=== PATIENT | male | born 1960 | race Caucasian/White ===

== ENCOUNTER 2020-02-15 15:03 | Inpatient (IN) | payer OTHER, SELFPAY ==
[~2020-02-15] VITALS: Ht 170.2 cm; Wt 59.0 kg
[2020-02-15 15:03] VITALS: BP 125/95
--- NOTE | 2020-02-15 15:25 | NUR ---
BROUGHT IN BY EMS FROM HOME WITH SUDDEN ONSET OF SOB--- COVID-19 SWAB COLLECTED---PT STATES HE USUALLY USES 3-4 LITTERS AT HOME OF OXYGEN PER CANULA---AWAITING A LUNG TRANSPLANT
[2020-02-15] MEDS ORDERED: PRED20TA5 PO (15:37)
[2020-02-15] MEDS ORDERED: MULT-1301 PO (15:37)
[2020-02-15] MEDS ORDERED: METF500T PO (15:37)
[2020-02-15] MEDS ORDERED: BENZ-196 PO (15:37)
[2020-02-15] MEDS ORDERED: cefTRIAXone 1,000 MG VIAL ONE (16:00)
[2020-02-15 16:08] LABS: BASOPHILS # (AUTO) 0.1 K/uL (0.00-0.22); BASOPHILS % (AUTO) 0.8 % (0.0-2.0); EOSINOPHILS % (AUTO) 0.1 % (0.0-4.0); HEMATOCRIT 34.5 % (36-52); HEMOGLOBIN 11.9 g/dL (12.0-18.0); LYMPHOCYTES # (AUTO) 0.9 K/uL (2.0-11.5); MEAN CORPUSCULAR HEMOGLOBIN 30 pg (27-31); MEAN CORPUSCULAR HGB CONC 35 g/dL (33-37); MEAN CORPUSCULAR VOLUME 85.3 fL (80-94); MONOCYTES # (AUTO) 0.5 K/uL (0.8-1.0); MONOCYTES % (AUTO) 5.9 % (1.7-9.3); NEUTROPHILS # (AUTO) 7.4 K/uL (1.8-7.7); NEUTROPHILS % (AUTO) 83.2 % (42.2-75.2); PLATELET COUNT (AUTO) 420 K/uL (140-450); RED BLOOD CELL COUNT(AUTO) 4.04 MIL/uL (4.20-6.10); RED CELL DISTRIBUTION WIDTH 16.6 % (11.6-13.7); WHITE BLOOD COUNT (AUTO) 8.9 K/uL (4.8-10.8)
[2020-02-15 16:36] LABS: ALBUMIN 2.8 g/dL (3.4-5.0); ANION GAP 13.1 (8-16); CREATININE 0.8 mg/dL (0.6-1.3); POTASSIUM 3.1 mmol/L (3.5-5.1); TOTAL BILIRUBIN 0.4 mg/dL (0.0-1.0)
--- NOTE | 2020-02-15 17:14 | NUR ---
ENCOURAGED TO PROVIDE URINE SAMPLE---URINAL HANDED TO PT PT ON HIS CELL PHONE--REMAINS ON 15L NON REBREATHER AND NO APPARENT DISTRESS
[2020-02-15] MEDS ORDERED: AZITHROMYCIN 500 MG in DEXTROSE 5% 250 ML IV ONE (19:05)
--- NOTE | 2020-02-15 19:30 | NUR ---
REPORT RECEIEVD FROM MELANIE ROLDAN FOR CONTINUITY OF CARE.
[2020-02-15 19:50] LABS: APPEARANCE,URINE CLEAR (CLEAR); BILIRUBIN,URINE NEGATIVE (NEGATIVE); BLOOD, URINE NEGATIVE (NEGATIVE); COLOR,URINE YELLOW (YELLOW); LEUKOCYTE ESTERASE ,URINE NEGATIVE (NEGATIVE); NITRITE, URINE NEGATIVE (NEGATIVE); PH,URINE 5.5 (5.0-9.0); UGLUCOSE NEGATIVE (NEGATIVE)
--- NOTE | 2020-02-15 20:00 | NUR ---
PT TRANSFERRED VIA [employer] TO TELE-101 FOR ER OVERFLOW. REPORT GIVEN TO ANN ROLDAN.
--- NOTE | 2020-02-15 20:10 | NUR ---
RECEIVED REPORT FROM YULI DAI FOR CONTINUATION OF CARE.
--- NOTE | 2020-02-15 20:16 | NUR ---
PT RESTING IN BED, LOCKED AND IN LOWEST POSITION ,HOB ELEVATED, SIDE RAIL X2 FOR PT SAFETY, PT RR EVEN AND UNLABORED.
[2020-02-15] MEDS ORDERED: AZITHROMYCIN 500 MG INJ VIAL IV ONE (20:27)
--- NOTE | 2020-02-15 20:30 | NUR ---
PT PROVIDED INFORMATION FOR HIS COMBATANT DIVER QUALIFIED DR. ALAN CABRERA ,
[2020-02-15] MEDS: NACL 0.9% 1,000 ML IV SCH (20:59)
--- NOTE | 2020-02-15 21:00 | NUR ---
JASON W/ DR. MEZA RE: PT K+ LEVEL, PER DR. MEZA ADMINISTER 40 MEQ K+ PO .
[2020-02-15] MEDS ORDERED: POTASSIUM CHLORIDE 10 MEQ TABER PO ONE ×2 (21:20→21:32)
--- NOTE | 2020-02-15 21:20 | NUR ---
PT RESTING IN BED, LOCKED AND IN LOWEST POSITION, HOB ELEVATED , SIDE RAIL X 2 FOR PT SAFETY , VISIBLE RISE AND FALL OF CHEST , RR EVEN AND UNLABORED, PT WATCHING TV , NO DISTRESS NOTED AT THIS TIME.
--- NOTE | 2020-02-15 22:20 | NUR ---
PT RESTING IN BED, LOCKED AND IN LOWEST POSITION, HOB ELEVATED , SIDE RAIL X 2 FOR PT SAFETY , VISIBLE RISE AND FALL OF CHEST , RR EVEN AND UNLABORED, PT WATCHING TV , NO DISTRESS NOTED AT THIS TIME. PT PROVIDED A SANDWICH.
--- NOTE | 2020-02-15 22:27 | NUR ---
PT C/O OF PAIN IN RIGHT HAND FROM IV. PT HAS SECOND IV IN LEFT HAND INSERTED BY EMS PRIOR TO ER ARRIVAL , LEFT HAND IV 22G HAS BEEN FLUSHED W/ 10 CC NS , NO REDNESS, SWELLING, INFILTRATION OR PAIN NOTED ON LEFT HAND IV SITE. PT REQUEST RIGHT HAND 20G IV BE TAKEN OUT DUE TO PAIN AT IV SITE. RIGHT HAND IV HAS BEEN D/C , IV CATH INTACT.
--- NOTE | 2020-02-15 23:01 | NUR ---
PT ON CELL PHONE, BED IS LOCKED AND IN LOWEST POSITION ,HOB ELEVATED, SIDE RAIL X2 FOR PT SAFETY , RR EVEN AND UNLABORED, VISIBLE RISE AND FALL OF CHEST , VSS.
--- NOTE | 2020-02-15 23:29 | NUR ---
DR. MEZA AT BEDSIDE FOR EVALUATION.
--- NOTE | 2020-02-15 23:59 | NUR ---
PT C/O OF COUGH , DR. MEZA MADE AWARE , SHE WILL PUT IN AN ORDER FOR BREATHING TX.
[2020-02-16] MEDS ORDERED: MORPHINE SULFATE 2 MG/ML SYR IVP PRN
[2020-02-16] MEDS ORDERED: HYDROcodone/APAP 5/325 MG 1 TAB TAB PO PRN
[2020-02-16] MEDS ORDERED: ALBUTEROL HFA MDI 90 MCG/ACTUATION 8 GM INH PRN
[2020-02-16] MEDS ORDERED: metFORMIN 500 MG TAB PO PRN
--- NOTE | 2020-02-16 00:15 | NUR ---
[facility] SWAB COLLECTED .
--- NOTE | 2020-02-16 00:40 | NUR ---
SPOKE W/ [facility] NEED VERIFICATION OF BENZONATATE , STEROID AND METFORMIN MEDICATION ORDERS.
--- NOTE | 2020-02-16 01:05 | NUR ---
SPOKE W/ DR. MEZA REGUARDING MEDICATION VERIFICATION ORDERS , PER DR. MEZA PT BENZONATATE IS AN AT HOME MED TID KEEP ORDER IS, D/C DECADRON ORDER AND KEEP PT PREDNISONE ORDER AND CHANGE METFORMIN ORDER FROM PRN TO [facility].
--- NOTE | 2020-02-16 01:11 | NUR ---
SPOKE W/ ILIR AT [facility] TO UPDATE STATUS ON VERIFICATION OF MEDICATION ORDERS.
--- NOTE | 2020-02-16 01:19 | NUR ---
PER DR. MEZA , AZITHROMYCIN MEDICATION ORDER 250MG PO DAILY , 4 DOSES TOTAL.
--- NOTE | 2020-02-16 01:26 | NUR ---
PT SLEEPING , BED LOCKED AND IN LOWEST POSITION ,HOB ELEVATED , SIDE RAIL X2 FOR PT SAFETY , AROUSABLE BY VERBAL STIMULATION, VISIBLE RISE AND FALL OF CHEST, RR EVEN AND UNLABORED.
[2020-02-16 01:48] LABS: PROTHROMBIN TIME 9.8 secs (10.8-13.4)
[2020-02-16 01:56] LABS: THYROID STIMULATING HORMONE 0.54 uIU/mL (0.34-3.74)
--- NOTE | 2020-02-16 02:10 | NUR ---
PT SLEEPING , BED LOCKED AND IN LOWEST POSITION, HOB ELEVATED , SIDE RAILX2 FOR PT SAFETY , AROUSABLE BY VERBAL STIMULATION, VISIBLE RISE AND FALL OF CHEST, RR EVEN AND UNLABORED, VSS.
[2020-02-16] MEDS ORDERED: DEXTROSE 50% 50 ML SYR IVP PRN (02:35)
[2020-02-16 02:56] LABS: BARBITURATE, URINE NEGATIVE ng/ml (NEG <=200); BENZODIAZEPINE, URINE NEGATIVE ng/mL (NEG <=200); CANNABINOID, URINE NEGATIVE ng/mL (NEG <=50); COCAINE, URINE NEGATIVE ng/mL (NEG <=300); OPIATE, URINE POSITIVE ng/mL (NEG <=2000); PHENCYCLIDINE SCREEN,URINE NEGATIVE ng/mL (NEG <=25)
--- NOTE | 2020-02-16 03:19 | NUR ---
RT AT BEDSIDE.
--- NOTE | 2020-02-16 03:35 | NUR ---
PT C/O COUGH , LET RT KNOW PT NEEDS PRN BREATHING TX.
--- NOTE | 2020-02-16 03:42 | NUR ---
PT PROVIDED NEW URINAL FOR URINE SAMPLE.
--- NOTE | 2020-02-16 04:11 | NUR ---
RT AT BEDSIDE FOR BREATHING TX.
--- NOTE | 2020-02-16 05:09 | NUR ---
URINE SAMPLE COLLECTED AND HAND TO LAB.
--- NOTE | 2020-02-16 05:13 | NUR ---
PT RESTING IN BED , LOCKED AND IN LOWEST POSITION, HOB ELEVATED , SIDE RAIL X2 FOR PT SAFETY , RR EVEN AND UNLABORED , VISIBLE RISE AND FALL OF CHEST. PT STATES HE IS BREATHING BETTER AFTER BREATHING TX.
--- NOTE | 2020-02-16 05:33 | NUR ---
LAB AT BEDSIDE.
[2020-02-16 06:54] LABS: BASOPHILS % (AUTO) 0.4 % (0.0-2.0); EOSINOPHILS % (AUTO) 0.1 % (0.0-4.0); HEMATOCRIT 30.2 % (36-52); HEMOGLOBIN 10.3 g/dL (12.0-18.0); LYMPHOCYTES # (AUTO) 1.2 K/uL (2.0-11.5); LYMPHOCYTES % (AUTO) 13.2 % (20.5-51.1); MEAN CORPUSCULAR HEMOGLOBIN 30 pg (27-31); MEAN CORPUSCULAR HGB CONC 34 g/dL (33-37); MEAN CORPUSCULAR VOLUME 86.5 fL (80-94); MONOCYTES # (AUTO) 0.6 K/uL (0.8-1.0); MONOCYTES % (AUTO) 6.4 % (1.7-9.3); NEUTROPHILS # (AUTO) 7.1 K/uL (1.8-7.7); NEUTROPHILS % (AUTO) 79.9 % (42.2-75.2); PLATELET COUNT (AUTO) 366 K/uL (140-450); RED BLOOD CELL COUNT(AUTO) 3.49 MIL/uL (4.20-6.10); RED CELL DISTRIBUTION WIDTH 16.7 % (11.6-13.7); WHITE BLOOD COUNT (AUTO) 8.8 K/uL (4.8-10.8)
[2020-02-16 07:18] LABS: ALBUMIN 2.5 g/dL (3.4-5.0); ANION GAP 9.2 (8-16); CREATININE 0.8 mg/dL (0.6-1.3); MAGNESIUM 1.8 mg/dL (1.8-2.4); PHOSPHORUS 3.2 mg/dL (2.5-4.9); POTASSIUM 4.2 mmol/L (3.5-5.1); TOTAL BILIRUBIN 0.3 mg/dL (0.0-1.0)
[2020-02-16 07:40] VITALS: BP 134/98
--- NOTE | 2020-02-16 07:40 | NUR ---
PATIENT ADMITTED TO THE UNIT, REPORT GIVEN BY ER NURSE. PATIENT STARTED ON IVF NS AT 70 ML/HR. PATIENT CURRENTLY ON 10L VIA NONREBREATHER MASK, SATURATION IS AT 94%. PATIENT AOX4, HAS FREQUENT DRY NONPRODUCTIVE COUGH, LUNG SOUNDS DIMINISHED. PATIENT VS ARE FOLLOWS 98.4, HR 90, BP 155.93, R 20, 94% OXYGEN. SKIN IS INTACT, IV SITE ON LEFT HAND 22G PATENT. ALL NEEDS MET, CALL LIGHT WITHIN REACH, WILL CONTINUE TO MONITOR. DROPLET PRECAUTIONS FOLLOWED.
--- NOTE | 2020-02-16 07:40 | NUR ---
Patient will be admitted to care of DR. MEZA. Admited to TELEMETRY. Will go to room 115. Belongings list completed. Report to YULI OLIVAS .
[2020-02-16] MEDS: ASCORBIC ACID 500 MG TAB PO SCH (08:52)
[2020-02-16] MEDS: MULTIVITAMIN 1 TAB PO SCH (08:52)
[2020-02-16] MEDS: predniSONE 20 MG TAB PO SCH (08:52)
[2020-02-16] MEDS: metFORMIN 500 MG TAB PO SCH ×2 (08:52→17:03)
[2020-02-16] MEDS: BENZONATATE 100 MG CAPLF PO SCH ×3 (08:53→17:03)
[2020-02-16] MEDS: VITAMIN D 400 IU TAB PO SCH (08:53)
[2020-02-16] MEDS: AZITHROMYCIN 250 MG TAB PO SCH (08:54)
[2020-02-16] MEDS: ZINC SULF 220 MG CAP PO SCH ×2 (08:54→21:17)
--- NOTE | 2020-02-16 08:54 | NUR ---
MEDICATIONS EXPLAINED AND GIVEN TO PATIENT. PATIENT TOLERATED MEDICATIONS WELL, NO ADVERSE SIDE EFFECTS NOTED. HEPARIN 5,000 UNITS GIVEN, PLATELET LEVEL WAS 366. PATIENT SATURATION IS 93% ON 10L NONREBREATHER, STILL COUGHING CONSTANTLY. PATIENT STATES HIS SATURATIONS ARE USUALLY LOW DUE TO HIS CYSTIC FIBROSIS. PATIENT IVF STILL RUNNING AT 70 ML/HR. ALL NEEDS MET, CALL LIGHT WITHIN REACH, WILL CONTINUE TO MONITOR. DROPLET PRECAUTIONS FOLLOWED.
[2020-02-16] MEDS: BLOOD GLUCOSE MONITORING 1 DEV DEV FS SCH ×4 (09:33→21:21)
[2020-02-16] MEDS: NACL 0.9% 1,000 ML IV SCH ×2 (09:34→23:41)
--- NOTE | 2020-02-16 10:16 | NUR ---
PATIENT HAS BEEN SCREENED AND CATEGORIZED MODERATE NUTRITION RISK. PATIENT WILL BE SEEN WITHIN 3-5 DAYS OF ADMISSION. 02/17/20 02/19/[address]
--- NOTE | 2020-02-16 11:16 | NUR ---
PATIENT BLOOD SUGAR WAS 106, NO INSULIN COVERAGE NEEDED AT THIS TIME.
--- NOTE | 2020-02-16 11:37 | NUR ---
DECREASED FIO2 FROM 3LNC TO 1LNC O2 SAT 96%
[2020-02-16 12:00] VITALS: BP 142/103
--- NOTE | 2020-02-16 12:00 | NUR ---
PATIENT VITAL SIGNS CHECKED TO BE 97.5, HR 106, BP 142/103, RR 20, WITH O2 SATURATION AT 93%. PATIENT STILL HAS CONSTANT COUGH, DRY AND NON PRODUCTIVE. PATIENT DOES NOT COMPLAIN OF ANY PAIN AT THIS TIME. ALL NEEDS MET, CALL LIGHT WITHIN REACH, WILL CONTINUE TO MONITOR. DROPLET PRECAUTIONS FOLLOWED.
--- NOTE | 2020-02-16 15:18 | NUR ---
COMMUTATOR INSPECTOR NOTE: JONI CONTACTED CHIEF ENVIRONMENTAL COMMITMENT OFFICER MEHRAN TO BE TRANSFERRED TO PATIENT'S ROOM PHONE. PATIENT DID NOT ANSWER. SW CONTACTED PATIENT'S NURSE WHO ALSO DID NOT ANSWER. SW WILL FOLLOW UP.
[2020-02-16 16:00] VITALS: BP 142/98
--- NOTE | 2020-02-16 16:30 | NUR ---
ASSISTED PATIENT TO BEDSIDE COMMODE. PATIENT ABLE TO STAND INDEPENDENTLY AND WALK TO COMMODE. PATIENT HAD ONE BM, SOFT AND BROWN. EMPTIED PATIENT URINAL OF 200 ML CLEAR YELLOW NON ODOROUS URINE. PATIENT PERFORMED OWN PERICARE. ALL NEEDS MET, CALL LIGHT WITHIN REACH, WILL CONTINUE TO MONITOR. DROPLET PRECAUTIONS FOLLOWED.
--- NOTE | 2020-02-16 16:51 | NUR ---
PATIENT BLOOD SUGAR WAS 128 , NO INSULIN COVERAGE NEEDED AT THIS TIME.
--- NOTE | 2020-02-16 17:03 | NUR ---
MEDICATIONS EXPLAINED AND GIVEN TO PATIENT, CHANDAN CAMARILLO, NO ADVERSE REACTION NOTED. ALL NEEDS MET, CALL LIGHT WITHIN REACH, WILL CONTINUE TO MONITOR. DROPLET PRECAUTIONS FOLLOWED.
--- NOTE | 2020-02-16 17:07 | NUR ---
DC PLANN[age] YRS OLD MALE PATIENT WAS ADMITTED FROM HOME WITH A DX OF SOB PNEUMONIA. PT HAS A HX OF CYSTIC FIBROSIS, CURRENTLY REQUIRING 10ML NONREBREATHER. CXR SHOWED MODERATED DIFFUSE PATCHY AIRSPACE EDEMA VERSUS INFILTRATE. ADMINISTERED IVF IV ABX ROCEPHIN AND AZITHROMYCIN. COVID TEST BLOOD AND URINE CULTURE PENDING PULMO CONSULTED . DC PLAN TO GO HOME WHEN STABLE CM TO FOLLOW. Addendum: 02/17/20 at 1435 by Adrianne Champion CM DC PLANNING COVID TEST NEGATIVE , SEEN BY PULMO DR RAMIREZ RECOMMENDED TO CONTINUE WITH IV ABX AND TO WEAN THE OXYGEN. CURRENTLY PT IS ON 7L OXYMIZER. DC PLAN TO GO HOME WHEN STABLE . CM TO FOLLOW Addendum: 02/26/20 at 1534 by Adrianne Champion CM DC PLANNING: [facility] IS ACCEPTING PATIENT AWAITING FOR AUTH FROM PATIENT'S INSURANCE DASHAWN MCKEON. CM TO FOLLOW Addendum: 02/26/20 at 1609 by Adrianne Champion CM DC PLANNING: CALLED PT'S INSURANCE [employer] SPOKE WITH SHANE PATEL [phone] NOTIFIED HER THE [facility] WILL DISCUSS IT WITH ANIMAL NUTRITION TEACHER AND CALL BACK. ALEXANDRO DESAI NO BED AVAILABLE TODAY WILL FOLLOW UP TOMORROW. CM TO FOLLOW
--- NOTE | 2020-02-16 19:00 | NUR ---
REPORT GIVEN TO BLUNGER LOADER NURSE REGARDING PATIENT STATUS AND PLAN OF CARE. PT IS CURRENTLY RESTING IN BED, STILL COUGHING, BUT STABILIZED WITH OXYGEN SATURATION 96%. ALL NEEDS MET, CALL LIGHT WITHIN REACH, DROPLET PRECAUTIONS FOLLOWED.
--- NOTE | 2020-02-16 19:01 | NUR ---
RECEIVED BEDSIDE ENDORSEMENT FROM AM SHIFT RN, PATIENT IS AOX4, ON NON REBREATHER AT 10 LITERS, SATURATION OF 98%. NO SOB. DROPLET PRECAUTION IN PLACE. LOW BED IN PLACE. PLAN OF CARE WAS DISCUSSED. CALL LIGHT WITHIN REACH. WILL CONTINUE TO MONITOR.
[2020-02-16 20:00] VITALS: BP 137/95
--- NOTE | 2020-02-16 21:21 | NUR ---
DUE MEDS GIVEN ORDERED. TOLERATED WELL. MED EDUCATION PROVIDED. FALL RISK PROTOCOL IN PLACE.
[2020-02-17] VITALS: BP 129/91
--- NOTE | 2020-02-17 | NUR ---
V/S TAKEN AND RECORDED. KEPT CLEAN AND DRY.
[2020-02-17 04:00] VITALS: BP 133/87
--- NOTE | 2020-02-17 04:00 | NUR ---
RESPIRATION EVEN AND UNLABORED, NO SOB.
--- NOTE | 2020-02-17 05:13 | NUR ---
INFORMED DR. ANDERSON THAT PATIENT HAS COUGH AND THAT PATIENT IS REQUESTING FOR COUGH MED. ORDERED PROMETHAZINE/CODEINE 5ML PO Q4 PRN FOR COUGH, NOTED AND CARRIED OUT.
[2020-02-17] MEDS: PROMETH/CODEINE 6.25-10MG/5ML 5 ML UDC PO PRN ×3 (06:14→23:55)
[2020-02-17] MEDS: BLOOD GLUCOSE MONITORING 1 DEV DEV FS SCH ×4 (06:20→21:02)
--- NOTE | 2020-02-17 06:20 | NUR ---
PATIENT IS AWAKE, NO SOB, DENIES PAIN. PROMETHAZINE/CODEINED PO PRN COUGH GIVEN ORDERED. ORANGE JUICE GIVEN TO PATIENT FOR BLOOD SUGAR OF 77. PATIENT IS NOT IN ANY DISTRESS. DENIES PAIN.
--- NOTE | 2020-02-17 07:05 | NUR ---
RECEIVED PATIENT FROM NIGHT NURSE. PATIENT IS AWAKE AND ALERT. RESP EVEN AND UNLABORED ON 10L NONREBREATHER. DENIES OF ANY DISCOMFORT AT THIS TIME. PLAN OF CARE DISCUSSED WITH PATIENT. PATIENT VERBALIZED UNDERSTANDING. CALL LIGHT WITHIN REACH. LH22 WITH NS 70ML/HR NOTED. DROPLET PRECAUTION OBSERVED. WILL CONTINUE WITH CARE.
--- NOTE | 2020-02-17 07:05 | NUR ---
PATIENT IS IN STABLE CONDITION. ENDORSED TO YULI CHAMPAGNE FOR CONTINUITY OF CARE.
[2020-02-17 07:08] LABS: T4 (THYROXINE) 6.5 ug/dL (4.5-12.0)
[2020-02-17 07:31] LABS: BASOPHILS % (AUTO) 0.5 % (0.0-2.0); EOSINOPHILS % (AUTO) 0.1 % (0.0-4.0); HEMATOCRIT 30.6 % (36-52); HEMOGLOBIN 10.5 g/dL (12.0-18.0); LYMPHOCYTES # (AUTO) 1.1 K/uL (2.0-11.5); LYMPHOCYTES % (AUTO) 11.7 % (20.5-51.1); MEAN CORPUSCULAR HEMOGLOBIN 29 pg (27-31); MEAN CORPUSCULAR HGB CONC 34 g/dL (33-37); MEAN CORPUSCULAR VOLUME 85.4 fL (80-94); MONOCYTES # (AUTO) 0.4 K/uL (0.8-1.0); MONOCYTES % (AUTO) 4.1 % (1.7-9.3); NEUTROPHILS # (AUTO) 7.6 K/uL (1.8-7.7); NEUTROPHILS % (AUTO) 83.6 % (42.2-75.2); PLATELET COUNT (AUTO) 364 K/uL (140-450); RED BLOOD CELL COUNT(AUTO) 3.58 MIL/uL (4.20-6.10); RED CELL DISTRIBUTION WIDTH 16.3 % (11.6-13.7); WHITE BLOOD COUNT (AUTO) 9.1 K/uL (4.8-10.8)
[2020-02-17 08:00] VITALS: BP 141/97
[2020-02-17] MEDS: MULTIVITAMIN 1 TAB PO SCH (08:36)
[2020-02-17] MEDS: ASCORBIC ACID 500 MG TAB PO SCH (08:36)
[2020-02-17] MEDS: predniSONE 20 MG TAB PO SCH (08:36)
[2020-02-17] MEDS: BENZONATATE 100 MG CAPLF PO SCH ×3 (08:36→16:53)
[2020-02-17] MEDS: AZITHROMYCIN 250 MG TAB PO SCH (08:36)
[2020-02-17] MEDS: metFORMIN 500 MG TAB PO SCH ×2 (08:36→16:53)
[2020-02-17] MEDS: ZINC SULF 220 MG CAP PO SCH (08:36)
[2020-02-17] MEDS: VITAMIN D 400 IU TAB PO SCH (08:37)
[2020-02-17 08:46] LABS: ALBUMIN 2.6 g/dL (3.4-5.0); ANION GAP 9.8 (8-16); CARBON DIOXIDE 32.9 mmol/L (21-32); CREATININE 0.7 mg/dL (0.6-1.3); MAGNESIUM 1.5 mg/dL (1.8-2.4); POTASSIUM 3.7 mmol/L (3.5-5.1); TOTAL BILIRUBIN 0.4 mg/dL (0.0-1.0)
--- NOTE | 2020-02-17 08:55 | NUR ---
MORNING ROUTINE MEDICATIONS GIVEN. PATIENT TOLERATED WELL. RESP EVEN AND UNLABORED ON 10L NONREBREATHER. PATIENT DENIES OF PAIN AT THIS TIME. LH22 PATENT WITH NS 70ML/HR. PATIENT IS SITTING UP IN BED EATING BREAKFAST. CALL LIGHT WITHIN REACH. WILL CONTINUE TO MONITOR.
--- NOTE | 2020-02-17 10:25 | NUR ---
ATTEMPTS MADE TO WEAN PATIENT OFF NONREBREATHER BY RT. PATIENT IS NOT TOLERATING WELL ON 2L NC. PATIENT IS NOW 96% ON 7L OXIMIZER AND TOLERATING WELL. PATIENT GIVEN PHENERGAN/CODEINE FOR COUGHS. TOLERATED WELL. WILL CONTINUE TO MONITOR.
--- NOTE | 2020-02-17 10:50 | NUR ---
checked on pt's o2 sat was on 12l nrb and was sating 95% changed to 2lnc and o2 sat was 90%then pt desat again and changed to 4l oxymizer at 4l and o2 sat 90% pt then again desat to 79% and jonathan carreon increased fio2 to 7l oxymizer and pt sat to 95% informed dr. georges of patients condition and she said to leave pt on 7l oxymizer.
[2020-02-17 12:00] VITALS: BP 121/87
[2020-02-17] MEDS: NACL 0.9% 1,000 ML IV SCH (13:59)
[2020-02-17] MEDS ORDERED: MAG SULF 2000 MG/WATER PREMIX 50 ML IV SCH (14:00)
--- NOTE | 2020-02-17 14:41 | NUR ---
MAG RIDER GIVEN ORDERED. RESP EVEN AND UNLABORED ON 7L OXIMIZER. PATIENT IS RESTING COMFORTABLY IN BED. WILL CONTINUE TO MONITOR.
[2020-02-17 16:00] VITALS: BP 135/92
[2020-02-17] MEDS: PIPERACILLIN/TAZOBACTAM 3.375 GM in DEXTROSE 5% 50 ML IV SCH ×2 (17:35→23:55)
--- NOTE | 2020-02-17 19:20 | NUR ---
ENDORSED TO NIGHT NURSE. PATIENT IN STABLE CONDITION
[2020-02-17 20:00] VITALS: BP 152/93
--- NOTE | 2020-02-17 20:00 | NUR ---
RECEIVED REPORT FROM DAY RN REGARDING THE PT FOR CONTINUITY OF CARE. RECEIVED PT LYING IN BED WATCHING TV. PT A/A/OX4, AMBULATES TO THE BEDSIDE COMMODE WITH ASSIST. NOT IN ANY DISTRESS. NO COMPLAIN OF PAIN AT THIS TIME. IVF INFUSING ORDERED. FALL PRECAUTION IMPLEMENTED. INSTRUCTED TO CALL FOR ASSISTANCE AT ALL TIMES. PT VERBALIZED UNDERSTANDING.CALL LIGHT WITHIN REACH. WILL CONTINUE POC.
--- NOTE | 2020-02-17 22:00 | NUR ---
ADMINISTERED ALL SCHEDULED MEDICATIONS ORDERED. BLOOD SUGAR WAS 92. NO COVERAGE GIVEN AND NEEDED. PT WAS COMPLAINING AT THE BEGINNING OF THE SHIFT THAT THEY DIDN'T GIVE HIM DINNER. GAVE PT TURKEY SANDWICH AND APPLE JUICE AND JELLO. CALL LIGHT WITHIN REACH. SAFETY MEASURES IN PLACED.
[2020-02-18] VITALS: BP 128/83
--- NOTE | 2020-02-18 | NUR ---
PT STILL AWAKE AND ON THE PHONE. VITAL SIGNS STABLE, AFEBRILE, SATING 97% ON 7L OXIMIZER. NO COMPLAIN AT THIS TIME.SR ON INSTRUCTIONAL TECHNOLOGY DIRECTOR, HR-98. CALL LIGHT WITHIN REACH.
--- NOTE | 2020-02-18 02:00 | NUR ---
PT ASLEEP AT THIS TIME. NO SIGN AND SYMPTOMS OF DISTRESS NOTED. VISIBLE CHEST RISE AND FALL NOTED. SAFETY MEASURES IN PLACED.
[2020-02-18] MEDS: NACL 0.9% 1,000 ML IV SCH ×2 (02:22→18:35)
[2020-02-18 04:00] VITALS: BP 130/82
--- NOTE | 2020-02-18 04:00 | NUR ---
PT AWAKE AND ON THE PHONE. VITAL SIGNS STABLE, AFEBRILE, SATING 97% ON 7L OXYMIZER. NO COMPLAIN AT THIS TIME.
[2020-02-18] MEDS: PIPERACILLIN/TAZOBACTAM 3.375 GM in DEXTROSE 5% 50 ML IV SCH ×4 (05:38→23:44)
[2020-02-18] MEDS: BLOOD GLUCOSE MONITORING 1 DEV DEV FS SCH ×4 (05:39→20:28)
--- NOTE | 2020-02-18 06:24 | NUR ---
PATIENT STABLE. NO ACUTE EVENTS THROUGHOUT THE NIGHT. NOT IN ANY DISTRESS. NO COMPLAIN AT THIS TIME. BLOOD SUGAR 78. NO COVERAGE NEEDED AND GIVEN. ALL NEEDS ATTENDED. WILL ENDORSE THE PT TO THE ONCOMING RN FOR CONTINUITY OF CARE.
[2020-02-18] MEDS: ALBUTEROL SULFATE/IPRATROPIU 3 ML SOL IH SCH ×3 (07:00→19:00)
--- NOTE | 2020-02-18 07:21 | NUR ---
RECEIVED REPORT FROM CONTINUING EDUCATION DIRECTOR RN FOR CONTINUITY OF CARE. PT IS AAOX4, COOPERATIVE AND ABLE TO MAKE NEEDS KNOWN. PT ON 7L O2 SATING 95%. PT SKIN IS INTACT. SOME SMALL BRUISING NOTED ON ABD AREA FROM HEPARIN INJECTIONS. PT AMBULATORY, ABLE TO PERFORM ADLS INDEPENDENTLY. PT HAS LEFT HAND 22G INFUSING NS @ 70ML/HR. INFUSING WELL. DISCUSSED POC WITH PT AND PT VERBALIZED UNDERSTANDING. ALL SAFETY MEASURES IN PLACE. BEDSIDE COMMODE AT PT BEDSIDE FOR EASE OF TOILETING. BED IN LOW POSITION, CALL LIGHT WITHIN REACH. WILL ROUND FREQUENTLY ON PT THROUGHOUT THE SHIFT.
[2020-02-18 07:34] LABS: ANION GAP 8.5 (8-16); CARBON DIOXIDE 33.7 mmol/L (21-32); CREATININE 0.6 mg/dL (0.6-1.3); POTASSIUM 3.2 mmol/L (3.5-5.1)
[2020-02-18 07:39] LABS: MAGNESIUM 1.7 mg/dL (1.8-2.4); PHOSPHORUS 3.8 mg/dL (2.5-4.9)
[2020-02-18 08:00] VITALS: BP 157/53
[2020-02-18] MEDS ORDERED: metFORMIN 500 MG TAB PO SCH (08:00)
[2020-02-18 08:05] LABS: HEMATOCRIT 31.8 % (36-52); HEMOGLOBIN 10.7 g/dL (12.0-18.0); MEAN CORPUSCULAR HEMOGLOBIN 29 pg (27-31); MEAN CORPUSCULAR HGB CONC 34 g/dL (33-37); MEAN CORPUSCULAR VOLUME 85.7 fL (80-94); PLATELET COUNT (AUTO) 389 K/uL (140-450); RED BLOOD CELL COUNT(AUTO) 3.71 MIL/uL (4.20-6.10); RED CELL DISTRIBUTION WIDTH 16.9 % (11.6-13.7); WHITE BLOOD COUNT (AUTO) 10.1 K/uL (4.8-10.8)
[2020-02-18] MEDS: metFORMIN 850 MG TAB PO SCH ×2 (08:50→17:10)
[2020-02-18] MEDS: BENZONATATE 100 MG CAPLF PO SCH ×3 (08:50→17:00)
[2020-02-18] MEDS: predniSONE 20 MG TAB PO SCH (08:50)
[2020-02-18] MEDS: MULTIVITAMIN 1 TAB PO SCH (08:50)
[2020-02-18] MEDS: AZITHROMYCIN 250 MG TAB PO SCH (08:50)
--- NOTE | 2020-02-18 09:12 | NUR ---
ADMINISTERED MORNING MEDS TO PT. PT TOLERATED WELL. ALL NEEDS MET. WILL CONTINUE TO ROUND FREQUENTLY ON PT. BED IN LOW POSITION, CALL LIGHT WITHIN REACH.
--- NOTE | 2020-02-18 09:21 | NUR ---
COULD NOT ADMIN 7AM TX DUE TO C SECTION.
[2020-02-18] MEDS: PROMETH/CODEINE 6.25-10MG/5ML 5 ML UDC PO PRN ×2 (09:58→22:30)
--- NOTE | 2020-02-18 11:24 | NUR ---
PT RESTING IN BED. ALL NEEDS MET.
[2020-02-18 12:00] VITALS: BP 114/76
--- NOTE | 2020-02-18 13:22 | NUR ---
PT RESTING IN BED. ALL NEEDS MET. WILL CONTINUE TO ROUND FREQUENTLY ON PT.
[2020-02-18] MEDS ORDERED: MAG SULF 2000 MG/WATER PREMIX 50 ML IV SCH (13:30)
--- NOTE | 2020-02-18 13:57 | NUR ---
ADMINISTERED PROMETHAZINE BUT NOT SCANNED. PT TOLERATED WELL.
[2020-02-18 14:29] LABS: BASOPHILS % (MANUAL) 0 % (0-2); EOSINOPHILS % (MANUAL) 0 % (0-4); LYMPHOCYTES % (MANUAL) 14 % (20-46); METAMYELOCYTES % 3 % (0-0); MONOCYTES % (MANUAL) 5 % (5-12); MYELOCYTES % 3 % (0-0)
--- NOTE | 2020-02-18 15:59 | NUR ---
PT RESTING IN BED AND WATCHING VIDEOS ON HIS CELL PHONE. ALL NEEDS CURRENTLY MET. WILL CONTINUE TO ROUND FREQUENTLY ON PT.
[2020-02-18 16:00] VITALS: BP 126/89
[2020-02-18] MEDS ORDERED: POTASSIUM CHLORIDE 40 MEQ, LIDOCAINE MPF 1% 25 MG in NACL 0.9% 250 ML IV SCH (16:00)
[2020-02-18] MEDS ORDERED: MAG SULF 2000 MG/WATER PREMIX 50 ML IV PRN ×2 (17:10→17:15)
[2020-02-18] MEDS ORDERED: POTASSIUM CHLORIDE 10 MEQ TABER PO PRN (17:10)
[2020-02-18] MEDS: INSULIN LISPRO SLIDING SCALE 100 UNITS/ML VIAL SUBQ PRN (17:16)
--- NOTE | 2020-02-18 17:48 | NUR ---
PT SITTING IN BED EATING DINNER. ALL NEEDS MET.
--- NOTE | 2020-02-18 18:52 | NUR ---
WILL ENDORSE TO GROUNDWATER CONSULTANT FOR CONTINUITY OF CARE. PT IN STABLE CONDITION.
[2020-02-18 20:00] VITALS: BP 128/90
--- NOTE | 2020-02-18 20:00 | NUR ---
RECEIVED REPORT FROM DAYSHIFT NURSE AT BEDSIDE. PT AWAKE AND ALERT, SITTING UP ON THE PHONE. ARMENIAN SPEAKING, ABLE TO FOLLOW COMMANDS, AND MAKE NEEDS KNOWN. OXYMIZER 7L, SATURATIONS 96%, LUNG SOUNDS CLEAR, BREATHING IS EVEN AND UNLABORED. SMALL INTERMITTENT COUGH NOTED. S1S2, SR ON TELE MONITOR. SKIN WARM AND DRY, AFEBRILE, INTACT. ABDOMEN SOFT AND NONTENDER, BOWEL SOUNDS ACTIVE. BEDSIDE COMMODE IN PLACE AND PT CONTINENT, USES URINAL. LEFT HAND 22G, FLUSHED AND PATENT. INFUSING KCL @ 68ML/HR. IVF NS @ 70ML/HR. ORIENTED PATIENT TO TREATMENT AND CALL LIGHT. ALL VALUABLES WITHIN REACH, SAFETY MEASURES IN PLACE, BED LOCKED AND IN LOWEST POSITION, PT DENIES PAIN. WILL CONTINUE TO MONITOR.
--- NOTE | 2020-02-18 21:30 | NUR ---
PT BLOOD SUGAR 106, NO COVERAGE NEEDED. SCHEDULED HEPARIN GIVEN, WITNESSED WITH SECOND RN. ALL NEEDS MET AT THIS TIME.
--- NOTE | 2020-02-18 22:30 | NUR ---
PT ASKING FOR COUGH MEDICINE. REPORTS HAVING A SMALL COUGH. O2 SATS DROP BELOW 90% WHEN COUGHING BUT RETURNS TO 96%. OXYMIZER 7L. PRN COUGH MED GIVEN, WILL REASSESS.
--- NOTE | 2020-02-18 22:42 | NUR ---
PT SLEEPING COMFORTABLY ON 9L OXY NO DISTRESS NOTED AT THIS TIME SPO2 95%
[2020-02-19] VITALS: BP 128/85
--- NOTE | 2020-02-19 00:10 | NUR ---
CHECKED IN ON PATIENT, ALERT TO VOICE. WOKE PATIENT UP TO CHECK VITALS AND EXPLAIN IV ANTIBIOTICS. VERBALIZED UNDERSTANDING. DENIES SOB OR PAIN. DECREASED O2 TO 5L, ASSESSED SATURATIONS, 96% ON 5L OXYMIZER. CALLED RT TO MAKE AWARE. PT TOLERATING WELL. EMPTIED URINAL, 100ML CLEAR YELLOW URINE. ALL OTHER VITALS WITHIN RANGE.
--- NOTE | 2020-02-19 01:32 | NUR ---
CHECKED IN ON PATIENT. SLEEPING, SNORING, NO SIGNS OF DISTRESS. CONTINUOUS PULSE OX AND CARDIAC MONITORING, 97% ON 5L OXYMIZER. SAFETY MEASURES IN PLACE, CALL LIGHT WITHIN REACH.
--- NOTE | 2020-02-19 01:55 | NUR ---
CHECKED IN ON PATIENT. PT IN DEEP SLEEP, AND DID NOT HAVE OXYMIZER ON, DESATTED TO 70's. WOKE PT UP AND REAPPLIED OXYMIZER, INCREASED 02 UNTIL SATURATIONS IMPROVED. PT HAVING SLIGHT COUGHING EPISODE. RN AT BEDSIDE TIL PT STABLE. REORIENTED PT TO OXYMIZER, VERBALIZED UNDERSTANDING. 02 94%. WILL CONTINUE TO MONITOR.
--- NOTE | 2020-02-19 03:45 | NUR ---
CHANGED IV BAG, IVF NS @ 70ML/HR. PT NOT IN DISTRESS. ABLE TO SELF TURN. VITALS WITHIN RANGE. BED LOCKED AND IN LOWEST POSITION. BEDSIDE COMMODE IN PLACE, URINAL AT BEDSIDE. ALL VALUABLES WITHIN REACH.
[2020-02-19 04:00] VITALS: BP 119/81
--- NOTE | 2020-02-19 05:15 | NUR ---
PT RESTING WELL, VISIBLE CHEST RISE AND FALL. NO DISTRESS NOTED. SAFETY MEASURES IN PLACE, SATURATIONS 97%, GOOD WAVE FORM NOTED ON MONITOR.
[2020-02-19] MEDS: PIPERACILLIN/TAZOBACTAM 3.375 GM in DEXTROSE 5% 50 ML IV SCH ×3 (05:52→17:17)
--- NOTE | 2020-02-19 06:40 | NUR ---
BLOOD SUGAR CHECK-90, NO COVERAGE NEEDED. INFORMED PATIENT BREAKFAST WILL COME AROUND [phone]. PT UPDATED ON TREATMENT, VERBALIZED UNDERSTANDING. DENIES PAIN. LEFT HAND 22G STILL INTACT, INFUSING IVF @ 70ML/HR. OXYMIZER AT 5L. WILL ENDORSE TO DAYSHIFT.
[2020-02-19] MEDS: BLOOD GLUCOSE MONITORING 1 DEV DEV FS SCH ×4 (06:50→21:42)
--- NOTE | 2020-02-19 07:25 | NUR ---
RECEIVED PT FROM NIGHT NURSE. PT IN STABLE CONDITION, AAOX4, NO DISTRESS NOTED, DENIES PAIN, RESPIRATIONS EVEN AND UNLABORED ON OXIMIZER AT 7L, O2 SAT 90%, PT DENIES SOB. IV SITE IN PLACE PATENT AND ASYMPTOMATIC INFUSING PER ORDER IN L H 22G. PT IS ABLE TO USE URINAL AND BEDSIDE COMMODE. STANDARD ISOLATION, COVID (-) ON 02/14. LAST BLOOD SUGAR 90. SAFETY MEASURES IN PLACE, BED IN LOW POSITION, CALL LIGHT WITHIN REACH. WILL CONTINUE TO MONITOR.
[2020-02-19 07:38] LABS: BASOPHILS # (AUTO) 0.1 K/uL (0.00-0.22); BASOPHILS % (AUTO) 0.5 % (0.0-2.0); EOSINOPHILS % (AUTO) 0.1 % (0.0-4.0); HEMATOCRIT 28.6 % (36-52); HEMOGLOBIN 9.9 g/dL (12.0-18.0); LYMPHOCYTES # (AUTO) 1.2 K/uL (2.0-11.5); LYMPHOCYTES % (AUTO) 11.1 % (20.5-51.1); MEAN CORPUSCULAR HEMOGLOBIN 30 pg (27-31); MEAN CORPUSCULAR HGB CONC 35 g/dL (33-37); MEAN CORPUSCULAR VOLUME 85.1 fL (80-94); MONOCYTES # (AUTO) 0.5 K/uL (0.8-1.0); MONOCYTES % (AUTO) 4.7 % (1.7-9.3); NEUTROPHILS # (AUTO) 8.7 K/uL (1.8-7.7); NEUTROPHILS % (AUTO) 83.6 % (42.2-75.2); PLATELET COUNT (AUTO) 339 K/uL (140-450); RED BLOOD CELL COUNT(AUTO) 3.36 MIL/uL (4.20-6.10); WHITE BLOOD COUNT (AUTO) 10.4 K/uL (4.8-10.8)
[2020-02-19] MEDS: ALBUTEROL SULFATE/IPRATROPIU 3 ML SOL IH SCH ×3 (07:40→19:49)
[2020-02-19 07:49] LABS: ANION GAP 6.5 (8-16); CARBON DIOXIDE 32.8 mmol/L (21-32); CREATININE 0.7 mg/dL (0.6-1.3); POTASSIUM 3.3 mmol/L (3.5-5.1)
[2020-02-19 07:55] LABS: MAGNESIUM 1.8 mg/dL (1.8-2.4); PHOSPHORUS 2.8 mg/dL (2.5-4.9)
[2020-02-19 08:00] VITALS: BP 129/89
[2020-02-19] MEDS: PROMETH/CODEINE 6.25-10MG/5ML 5 ML UDC PO PRN ×3 (08:38→22:33)
--- NOTE | 2020-02-19 08:49 | NUR ---
MEDICATIONS ADMINISTERED PER ORDER. PT TOLERATED WELL, NO DISTRESS NOTED. SAFETY MEASURES IN PLACE. WILL CONTINUE TO MONITOR.
[2020-02-19] MEDS: metFORMIN 850 MG TAB PO SCH ×2 (08:50→17:17)
[2020-02-19] MEDS: predniSONE 20 MG TAB PO SCH (08:50)
[2020-02-19] MEDS: BENZONATATE 100 MG CAPLF PO SCH ×3 (08:50→16:56)
[2020-02-19] MEDS: NACL 0.9% 1,000 ML IV SCH ×2 (08:51→22:13)
[2020-02-19] MEDS: AZITHROMYCIN 250 MG TAB PO SCH (08:51)
[2020-02-19] MEDS: MULTIVITAMIN 1 TAB PO SCH (08:51)
--- NOTE | 2020-02-19 10:05 | NUR ---
PT ASSISTED IN USING BEDSIDE COMMODE, SATURATION DROPPED TO 75%. INCREASED O2 TO 10L VIA OXYMIZER. RT KAREL HAGEN. WILL CONTINUE TO MONITOR.
[2020-02-19 12:00] VITALS: BP 126/91
--- NOTE | 2020-02-19 12:45 | NUR ---
PT IN BED EATING, NO RESPIRATORY DISTRESS NOTED. DENIES PAIN. BENZONATATE MEDICATION REFUSED. SAFETY MEASURES IN PLACE. WILL CONTINUE TO MONITOR.
--- NOTE | 2020-02-19 15:16 | NUR ---
02/19/20 RD INITIAL ASSESSMENT COMPLETED PLEASE REFER TO NUTRITION ASSESSMENT UNDER CARE ACTIVITY FOR ESTIMATED NUTRITIONAL NEEDS. 1. RECOMMEND CCHO 75GM DIET TOLERATED 2. RECOMMEND GLUCERNA QID 3. ENCOURAGED PO INTAKE 4. RD TO FOLLOW-UP 3-5 DAYS, MODERATE RISK JANELLE CANO, RD
--- NOTE | 2020-02-19 15:21 | NUR ---
PT IN BED SLEEPING, NO DISTRESS NOTED. RESPIRATIONS EVEN AND UNLABORED. WILL CONTINUE TO MONITOR.
[2020-02-19 16:00] VITALS: BP 147/103
--- NOTE | 2020-02-19 17:12 | NUR ---
MEDICATIONS ADMINISTERED PER ORDER, PT TOLERATED WELL. BLOOD SUGAR IS 124, NO INSULIN NEEDED. NO DISTRESS NOTED, RESPIRATIONS EVEN AND UNLABORED ON 7L VIA OXYMIZER. WILL CONTINUE TO MONITOR.
--- NOTE | 2020-02-19 19:26 | NUR ---
REPORT GIVEN TO NIGHT NURSE FOR CONTINUITY OF CARE.
--- NOTE | 2020-02-19 19:30 | NUR ---
RECEIVED PT FROM DAY RN. PT IN STABLE CONDITION, AOX4, NO S/S RESPIRATORY DISTRESS. NO C/O PAIN AT THIS TIME. ON OXIMIZER AT 6L, O2 SAT 90%. IV SITE ASYMPTOMATIC, INTACT, PATENT, RUNNING IVF PER MD ORDER IN LEFT HAND 22G. PT USES URINAL AND BEDSIDE COMMODE. BED IN LOW POSITION, SIDE RAILS UP X2, CALL LIGHT WITHIN REACH. WILL CONTINUE TO MONITOR.
--- NOTE | 2020-02-19 19:54 | NUR ---
RECEIVED REPORT FROM AM SHIFT. PT SEEN AND ASSESSED. PT IS ON 6L OXYMIZER WITH SPO2 OF 98%. AUSCULTATION REVEALS CLEAR BREATH SOUNDS. PT IN NO APPARENT RESPIRATORY DISTRESS AT THIS TIME. TX GIVEN ORDERED AND PT TOLERATED WELL WITH NO ADVERSE REACTIONS. WILL CONTINUE TO MONITOR PT.
[2020-02-19 20:00] VITALS: BP 131/90
--- NOTE | 2020-02-19 21:40 | NUR ---
ADMINISTERED SCHEDULED MEDICATION. MEDICATION EDUCATION GIVEN. PT VERBALIZED UNDERSTANDING. WILL CONTINUE TO MONITOR.
--- NOTE | 2020-02-19 21:45 | NUR ---
BLOOD SUGAR 128. NO INSULIN COVERAGE NEEDED.
--- NOTE | 2020-02-19 23:50 | NUR ---
PTRSTING IN BED. NO DISTRESS NOTED. RESPIRATIONS EVEN AND UNLABORED. O2 SAT 88%. WILL CONTINUE TO MONITOR.
[2020-02-20] VITALS: BP 123/87
[2020-02-20] MEDS: PIPERACILLIN/TAZOBACTAM 3.375 GM in DEXTROSE 5% 50 ML IV SCH ×5 (00:32→23:19)
--- NOTE | 2020-02-20 02:00 | NUR ---
PT RESTING IN BED. O2 SAT 91%. WILL CONTINUE TO MONITOR
[2020-02-20] MEDS: POTASSIUM CHLORIDE 10 MEQ TABER PO PRN (02:50)
[2020-02-20 04:00] VITALS: BP 141/90
[2020-02-20] MEDS: ALBUTEROL SULFATE/IPRATROPIU 3 ML SOL IH PRN ×2 (04:02→14:03)
--- NOTE | 2020-02-20 04:15 | NUR ---
PT RESTING IN BED. O2 SAT 94%. DENIES SOB. DENIES PAIN. NO DISTRESS NOTED. WILL CONTINUE TO MONITOR
[2020-02-20] MEDS: ALBUTEROL SULFATE/IPRATROPIU 3 ML SOL IH SCH ×3 (07:00→13:00)
--- NOTE | 2020-02-20 07:19 | NUR ---
RECEIVED REPORT FROM ENVIRONMENTAL REMEDIATION ENGINEER RN FOR CONTINUITY OF CARE. PT IS AAOX4, COOPERATIVE AND ABLE TO MAKE NEEDS KNOWN. PT ON 7L O2 SATING 91%. PT SKIN IS INTACT. SOME SMALL BRUISING NOTED ON ABD AREA FROM HEPARIN INJECTIONS. PT AMBULATORY, ABLE TO PERFORM ADLS INDEPENDENTLY. PT HAS LEFT HAND 22G INFUSING NS @ 70ML/HR. INFUSING WELL. DISCUSSED POC WITH PT AND PT VERBALIZED UNDERSTANDING. ALL SAFETY MEASURES IN PLACE. BEDSIDE COMMODE AT PT BEDSIDE FOR EASE OF TOILETING. BED IN LOW POSITION, CALL LIGHT WITHIN REACH. WILL ROUND FREQUENTLY ON PT THROUGHOUT THE SHIFT.
--- NOTE | 2020-02-20 07:20 | NUR ---
ENDORSED PT IN STABLE CONDITION TO DAY RN FOR CONTINUITY OF CARE.
[2020-02-20] MEDS: BLOOD GLUCOSE MONITORING 1 DEV DEV FS SCH ×4 (07:49→21:00)
[2020-02-20 08:00] VITALS: BP 133/86
[2020-02-20] MEDS: BENZONATATE 100 MG CAPLF PO SCH ×3 (08:17→17:00)
[2020-02-20 08:22] LABS: ANION GAP 12.5 (8-16); CARBON DIOXIDE 30.4 mmol/L (21-32); CREATININE 0.6 mg/dL (0.6-1.3); POTASSIUM 3.9 mmol/L (3.5-5.1)
[2020-02-20 08:24] LABS: BASOPHILS % (AUTO) 0.3 % (0.0-2.0); EOSINOPHILS % (AUTO) 0.1 % (0.0-4.0); HEMATOCRIT 30.2 % (36-52); HEMOGLOBIN 10.2 g/dL (12.0-18.0); LYMPHOCYTES # (AUTO) 1.6 K/uL (2.0-11.5); LYMPHOCYTES % (AUTO) 11.2 % (20.5-51.1); MEAN CORPUSCULAR HEMOGLOBIN 29 pg (27-31); MEAN CORPUSCULAR HGB CONC 34 g/dL (33-37); MONOCYTES # (AUTO) 0.7 K/uL (0.8-1.0); MONOCYTES % (AUTO) 4.9 % (1.7-9.3); NEUTROPHILS # (AUTO) 12.1 K/uL (1.8-7.7); NEUTROPHILS % (AUTO) 83.5 % (42.2-75.2); PLATELET COUNT (AUTO) 343 K/uL (140-450); RED BLOOD CELL COUNT(AUTO) 3.48 MIL/uL (4.20-6.10); RED CELL DISTRIBUTION WIDTH 17.1 % (11.6-13.7); WHITE BLOOD COUNT (AUTO) 14.5 K/uL (4.8-10.8)
[2020-02-20] MEDS: metFORMIN 850 MG TAB PO SCH ×2 (08:44→17:00)
[2020-02-20] MEDS: predniSONE 20 MG TAB PO SCH (08:45)
[2020-02-20] MEDS: MULTIVITAMIN 1 TAB PO SCH (08:45)
[2020-02-20] MEDS: PROMETH/CODEINE 6.25-10MG/5ML 5 ML UDC PO PRN ×2 (08:46→23:34)
--- NOTE | 2020-02-20 09:04 | NUR ---
ADMINISTERED MORNING MEDS TO PT. PT TOLERATED WELL. ALL NEEDS MET. WILL CONTINUE TO ROUND FREQUENTLY ON PT.
[2020-02-20 10:36] LABS: MAGNESIUM 1.4 mg/dL (1.8-2.4); PHOSPHORUS 2.7 mg/dL (2.5-4.9)
--- NOTE | 2020-02-20 11:20 | NUR ---
PT RESTING IN BED. ALL NEEDS MET. WILL CONTINUE TO ROUND FREQUENTLY ON PT. BED IN LOW POSITION, CALL LIGHT WITHIN REACH.
[2020-02-20 12:00] VITALS: BP 126/79
[2020-02-20] MEDS: MAG SULF 2000 MG/WATER PREMIX 100 ML IV SCH ×2 (12:00→14:00)
--- NOTE | 2020-02-20 13:34 | NUR ---
PT SITTING IN BEDSIDE CHAIR TALKING ON HIS PHONE. ALL NEEDS MET.
[2020-02-20] MEDS: NACL 0.9% 1,000 ML IV SCH (14:07)
--- NOTE | 2020-02-20 15:41 | NUR ---
PT RESTING IN BED. O2 SAT @ 95%. ALL NEEDS CURRENTLY MET. WILL ROUND FREQUENTLY ON PT.
[2020-02-20 16:00] VITALS: BP 124/74
--- NOTE | 2020-02-20 17:40 | NUR ---
PT RESTING IN BED. ALL NEEDS MET
[2020-02-20] MEDS: INSULIN LISPRO SLIDING SCALE 100 UNITS/ML VIAL SUBQ PRN (18:36)
--- NOTE | 2020-02-20 19:30 | NUR ---
RECEIVED REPORT FROM DAYSHIFT NURSE FOR CONTINUITY OF CARE. PT IN BED WATCHINT TV WITH HOB ELEVATED. PT IS AAOX4 WITH BEDSIDE COMMODE. RESPIRATIONS EVEN AND UNLABORED. O2 15LPM/OXIMIZER. SKIN IS WARM, DRY, AND INTACT. ABDOMEN IS SOFT AND NON-TENDER. IV ACCESS ON LEFT WRIST G22 PATENT AND INTACT. IVF INFUSING WELL. PT DENIES ANY PAIN OR DISCOMFORT AT THIS TIME. PLAN OF CARE DISCUSSED. PT KEPT COMFORTABLE. CALL LIGHT WITHIN REACH. WILL CONTINUE TO MONITOR.
--- NOTE | 2020-02-20 19:39 | NUR ---
ENDORSED PT TO MACHINE ERECTOR FOR CONTINUITY OF CARE. PT IN STABLE CONDITION AT THIS TIME.
[2020-02-20 20:00] VITALS: BP 123/89
--- NOTE | 2020-02-20 23:20 | NUR ---
VS STABLE. SCHEDULED MEDS GIVEN ORDERED. BLOOD SUGAR 73. OFFERED ORANGE JUICE. PT DENIES ANY PAIN OR DISCOMFORT AT THIS TIME. SAFETY MEASURES IN PLACE. CALL LIGHT WITHIN REACH. WILL CONTINUE TO MONITOR.
--- NOTE | 2020-02-20 23:40 | NUR ---
PT COMPLAINED OF COUGHING. PRN COUGH MEDICATION GIVEN ORDERED. VS STABLE. RESPIRATIONS EVEN AND UNLABORED. O2 IN PLACE. O2 SAT 99%. CALL LIGHT WITHIN REACH. WILL CONTINUE TO MONITOR.
[2020-02-21] VITALS: BP 114/85
--- NOTE | 2020-02-21 02:28 | NUR ---
ROUNDS MADE. PT ASLEEP WITH HOB ELEVATED. O2 IN PLACE. VISIBLE CHEST RISE AND FALL NOTED. PT NOT IN DISTRESS. CALL LIGHT WITHIN REACH. WILL CONTINUE TO MONITOR.
[2020-02-21] MEDS: NACL 0.9% 1,000 ML IV SCH ×2 (03:47→18:05)
[2020-02-21 04:00] VITALS: BP 117/83
--- NOTE | 2020-02-21 04:01 | NUR ---
VITAL SIGNS STABLE. O2 IN PLACE. PT NOT IN DISTRESS. RESPIRATIONS EVEN AND UNALBORED. NO COMPLAINTS MADE AT THIS TIME. CALL LIGHT WITHIN REACH. WILL CONTINUE TO MONITOR.
[2020-02-21] MEDS: PIPERACILLIN/TAZOBACTAM 3.375 GM in DEXTROSE 5% 50 ML IV SCH ×3 (05:09→17:57)
[2020-02-21] MEDS: BLOOD GLUCOSE MONITORING 1 DEV DEV FS SCH ×4 (06:33→21:00)
--- NOTE | 2020-02-21 06:35 | NUR ---
BLOOD SUGAR 81. APPLE JUICE OFFERED. WILL CONTINUE TO MONITOR.
--- NOTE | 2020-02-21 07:15 | NUR ---
GAVE BEDSIDE SHIFT REPORT TO DAY SHIFT NURSE FOR CONTINUITY OF CARE. PATIENT IS IN STABLE CONDITION.
--- NOTE | 2020-02-21 07:17 | NUR ---
RECEIVED REPORT FROM CIDER MAKER NURSE EHSAN FOR CONTINUITY OF CARE. PT IS AWAKE AND RESTING ON BED AT THIS TIME. PATIENT IS AAOX4, ABLE TO MAKE NEEDS KNOWN AND FOLLOW COMMAND. RESPIRATION EVEN AND UNLABORED ON 13 LPM VIA OXIMIZER. NO SIGNS OF ACUTE DISTRESS NOTED. IV ON L HAND 22G, CLEAN AND INTACT, INFUSING PER MD ORDER. SKIN DRY AND CLEAN. PT IS CONTINENT AND ABLE TO USE URINAL AND BEDSIDE COMMODE. TELE MONITOR IN PLACE. SAFETY MEASURES IN PLACE. ENHANCED DROPLET PRECAUTION AND FALL RISK PRECAUTION IN PLACE. BED IN LOW POSITION AND CALL LIGHT WITHIN REACH, BED LOCKED AND BED ALARM ACTIVATED.
[2020-02-21] MEDS: ALBUTEROL SULFATE/IPRATROPIU 3 ML SOL IH SCH ×3 (07:19→19:02)
--- NOTE | 2020-02-21 07:25 | NUR ---
RECEIVED REPORT FROM [facility] SHIFT. PT SEEN AND ASSESSED. PT IS ON 15L OXYMIZER WITH SPO2 OF 96%. TITRATED TO 10L WITH SPO2 OF 90%. AUSCULTATION REVEALS CLEAR BREATH SOUNDS. PT IN NO APPARENT RESPIRATORY DISTRESS AT THIS TIME. TX GIVEN ORDERED AND PT TOLERATED WELL WITH NO ADVERSE REACTIONS. WILL CONTINUE TO MONITOR PT.
[2020-02-21 08:00] VITALS: BP 135/96
[2020-02-21] MEDS: metFORMIN 850 MG TAB PO SCH ×2 (08:17→17:57)
[2020-02-21] MEDS: predniSONE 20 MG TAB PO SCH (08:17)
[2020-02-21] MEDS: BENZONATATE 100 MG CAPLF PO SCH ×3 (08:18→17:00)
[2020-02-21] MEDS: MULTIVITAMIN 1 TAB PO SCH (08:18)
--- NOTE | 2020-02-21 08:30 | NUR ---
ATTENDED TO PATIENT'S CALL LIGHT AND ASSISTED PATIENT TO USE THE BEDSIDE COMMODE. PATIENT COMPLAINED THAT REMOTE FOR TV IS NOT WORKING AND WISH TO CHANGE TO ANOTHER ROOM, APOLOGIZED TO PATIENT AND EXPLAINED THAT SINCE HIS COVID RESULT IS STILL PENDING HE HAS TO BE IN ISOLATED ROOM FOR SAFETY, PATIENT WAS AWARE. WILL NOTIFIED ENGINEERING ABOUT REMOTE ISN'T WORKING.
--- NOTE | 2020-02-21 08:43 | NUR ---
ADMINISTERED SCHEDULED MEDS PER MD ORDER, MEDS EDUCATION PROVIDED TO PATIENT AND PATIENT VERBALIZED UNDERSTANDING. PT IS EATING BREAKFAST ON BED AT THIS TIME. DENIED SOB, PAIN AND DIZZINESS. NO SIGNS OF ACUTE DISTRESS NOTED. CHANGED BATTERY FOR TELE MONITOR. SAFETY MEASURES IN PLACE. BED IN LOW POSITION AND CALL LIGHT WITHIN REACH. INSTRUCTED PATIENT TO USE THE CALL LIGHT FOR ANY ASSISTANCE AND PT WAS AWARE.
[2020-02-21 09:09] LABS: ANION GAP 10.4 (8-16); CARBON DIOXIDE 31.9 mmol/L (21-32); CREATININE 0.7 mg/dL (0.6-1.3); POTASSIUM 3.3 mmol/L (3.5-5.1)
[2020-02-21 09:24] LABS: BASOPHILS # (AUTO) 0.1 K/uL (0.00-0.22); BASOPHILS % (AUTO) 0.6 % (0.0-2.0); EOSINOPHILS % (AUTO) 0.1 % (0.0-4.0); HEMATOCRIT 30.2 % (36-52); HEMOGLOBIN 10.1 g/dL (12.0-18.0); LYMPHOCYTES # (AUTO) 1.9 K/uL (2.0-11.5); LYMPHOCYTES % (AUTO) 13.5 % (20.5-51.1); MEAN CORPUSCULAR HEMOGLOBIN 29 pg (27-31); MEAN CORPUSCULAR HGB CONC 34 g/dL (33-37); MONOCYTES # (AUTO) 0.6 K/uL (0.8-1.0); MONOCYTES % (AUTO) 4.2 % (1.7-9.3); NEUTROPHILS # (AUTO) 11.3 K/uL (1.8-7.7); NEUTROPHILS % (AUTO) 81.6 % (42.2-75.2); PLATELET COUNT (AUTO) 343 K/uL (140-450); RED BLOOD CELL COUNT(AUTO) 3.47 MIL/uL (4.20-6.10); RED CELL DISTRIBUTION WIDTH 17.5 % (11.6-13.7); WHITE BLOOD COUNT (AUTO) 13.9 K/uL (4.8-10.8)
--- NOTE | 2020-02-21 11:15 | NUR ---
ATTEMPTED TO CHANGE THE REMOTE FOR PATIENT, AND ITS STILL NOT WORKING. EXPLAINED TO PATIENT DUE TO HE IS IN ISOLATED ROOM AND UNABLE TO CHANGE TO ANOTHER ROOM AT THIS TIME, WILL NOTIFY ENGINEERING FOR REPAIR. PT SAID OK. PT IS RESTING ON BED AT THIS TIME. NO SIGNS OF DISTRESS NOTED. TELE MONITOR ATTACHED. SAFETY MEASURES IN PLACE.
[2020-02-21 12:00] VITALS: BP 120/82
--- NOTE | 2020-02-21 12:15 | NUR ---
CHECKED BLOOD GLUCOSE AND RECEIVED 134, NO COVERAGE NEEDED. ADMINISTERED SCHEDULED MEDS, MEDS EDUCATION PROVIDED AND PT SAID OK. PT IS AWAKE AND LOOKING AT HIS PHONE. NO SIGNS OF DISTRESS NOTED. TELE MONITOR ATTACHED. SAFETY MEASURES IN PLACE.
--- NOTE | 2020-02-21 13:55 | NUR ---
PATIENT AWAKE AND RESTING ON BED, LOOKING AT THIS PHONE. DENIED SOB, DIZZINESS AND PAIN. NO SIGNS OF DISTRESS NOTED. TELE MONITOR ATTACHED. SAFETY MEASURES IN PLACE.
--- NOTE | 2020-02-21 14:04 | NUR ---
ATTENDED TO CALL LIGHT, PATIENT REQUESTED FOR A NEW URINAL AND MORE WIPE, PROVIDED. NO SIGNS OF DISTRESS NOTED. TELE MONITOR IN PLACE. SAFETY MEASURES IN PLACE.
--- NOTE | 2020-02-21 15:30 | NUR ---
PATIENT IS RESTING ON BED AND LOOKING AT HIS PHONE. NO SIGNS OF DISTRESS NOTED. TELE MONITOR IN PLACE. SAFETY MEASURES IN PLACE.
--- NOTE | 2020-02-21 16:51 | NUR ---
ENDORSED PATIENT TO HOLLY ROLDAN FOR CONTINUITY OF CARE. PT IS IN STABLE CONDITION.
[2020-02-21] MEDS: POTASSIUM CHLORIDE 10 MEQ TABER PO PRN (17:57)
[2020-02-21 18:19] VITALS: BP 135/96
--- NOTE | 2020-02-21 19:20 | NUR ---
ENDORSED STABLE PATIENT TO POLISHER BRASS NURSE FOR CONTINUITY OF CARE.
--- NOTE | 2020-02-21 19:20 | NUR ---
RECEIVED BEDSIDE REPORT FROM DAY SHIFT NURSE. PT IS A&O X 4. PT IS AWAKE AND ALERT. PT IS ON 10 L OXIMIZER WITH O2 SAT AT 92%. PT DOES NOT APPEAR IN DISTRESS. BEDPAN IS AT BEDSIDE FOR VOIDING. SKIN IS WARM, DRY, AND INTACT. DROPLET PRECAUTIONS ARE IN PLACE. IV IS IN THE LEFT HAND 22 GAUGE RUNNING NS AT 70. PLAN OF CARE DISCUSSED. BED IN LOWEST POSITION AND CALL LIGHT WITHIN REACH.
[2020-02-21 20:00] VITALS: BP 143/87
[2020-02-21] MEDS: PROMETH/CODEINE 6.25-10MG/5ML 5 ML UDC PO PRN (20:22)
--- NOTE | 2020-02-21 20:22 | NUR ---
PT IS COUGHING A LOT AND WAS PROVIDED PHENERGEN PRN. WILL MONITOR PT FOR COUGHING. NO RESPIRATORY DISTRESS NOTED. O2 SAT IS 96% ON 10 L OXIMIZER.
--- NOTE | 2020-02-21 21:01 | NUR ---
NOTIFIED DR. MEZA ABOUT HR 148 FOR THE PAST 30 MINUTES. SHE ORDERED A CARDIO CONSULT AND SAID SHE WOULD BE COMING BY [facility] TO CHECK ON PATIENT. NO NEW ORDERS AT THIS TIME.
--- NOTE | 2020-02-21 22:30 | NUR ---
PT'S HR IS 108 ON TELE MONITORING. PT IS BREATHING REGULAR AND UNLABORED. OXIMIZER IS AT 10L O2. O2 SAT IS 95% PT IS STABLE AT THIS TIME.
--- NOTE | 2020-02-21 23:19 | NUR ---
PT IS ASLEEP. NO SIGNS OF DISTRESS. CHEST RISE AND FALL IS SYMMETRICAL. NO SOB OR COUGHING CURRENTLY.
[2020-02-22] VITALS: BP 133/87
[2020-02-22] MEDS: PIPERACILLIN/TAZOBACTAM 3.375 GM in DEXTROSE 5% 50 ML IV SCH ×4 (00:41→18:00)
--- NOTE | 2020-02-22 02:00 | NUR ---
PT IS ASLEEP. NO DISTRESS NOTED. RESPIRATIONS ARE EVEN AND UNLABORED. CHEST RISE AND FALL IS SYMMETRICAL. HR IS 99. AND O2 SAT IS 94%
[2020-02-22 04:00] VITALS: BP 130/80
--- NOTE | 2020-02-22 04:00 | NUR ---
PT IS AWAKE AND ALERT. A&O X 4. PT DENIES ANY PAIN. PT IS NOT CURRENTLY COUGHING. NO SIGNS OF DISTRESS NOTED. WILL CONTINUE TO MONITOR.
[2020-02-22] MEDS: NACL 0.9% 1,000 ML IV SCH ×2 (04:03→22:41)
--- NOTE | 2020-02-22 05:47 | NUR ---
HR IS 100 AND O2 SAT IS 95% ON 10 L OXIMIZER. PT IS STABLE AT THIS TIME. FLUIDS ARE RUNNING, BED IS IN LOWEST POSITION, AND CALL LIGHT IS WITHIN REACH.
[2020-02-22] MEDS: BLOOD GLUCOSE MONITORING 1 DEV DEV FS SCH ×4 (06:33→20:39)
--- NOTE | 2020-02-22 07:18 | NUR ---
ENDORSED PT TO DAY SHIFT NURSE FOR CONTINUITY OF CARE. PT IS STABLE AT THIS TIME. PLAN OF CARE WAS DISCUSSED.
--- NOTE | 2020-02-22 07:22 | NUR ---
RECEIVED REPORT FROM RADIOTELEPHONE TECHNICAL OPERATOR NURSE. PT IN BED. AOX4, NO C/O PAIN, NO SOB, RESPIRATIONS ARE EVEN AND UNLABORED. ON O2 10L VIA OXIMIZER. SKIN IS INTACT. PT IS AMBULATORY WITH ASSIST, FALL RISK. WITH IV ON LH 22G NS AT 700ML/HR. SAFETY PRECAUTIONS IN PLACE. ISOLATION PRECAUTION OBSERVED. CALL LIGHT WITHIN REACH. WILL CONTINUE TO MONITOR Addendum: 02/23/20 at 0753 by Calos Frazier RN NS AT 70ML/HR
[2020-02-22 08:00] VITALS: BP 161/97
[2020-02-22] MEDS: metFORMIN 850 MG TAB PO SCH ×2 (08:00→17:00)
--- NOTE | 2020-02-22 08:00 | NUR ---
WITH EPISODE OF DESATURATING TO 67%. RT CALLED. INCREASED O2 TO 15L VIA OXIMIZER. BREATHING TREATMENT GIVEN BY RT. O2SAT INCREASED TO 98% AFTER INTERVENTIONS.
[2020-02-22] MEDS: ALBUTEROL SULFATE/IPRATROPIU 3 ML SOL IH SCH ×3 (08:07→19:00)
--- NOTE | 2020-02-22 08:30 | NUR ---
DUE MORNING MEDS GIVEN. TOLERATED WELL
[2020-02-22] MEDS: predniSONE 20 MG TAB PO SCH (09:07)
[2020-02-22] MEDS: MULTIVITAMIN 1 TAB PO SCH (09:07)
[2020-02-22] MEDS: BENZONATATE 100 MG CAPLF PO SCH ×3 (09:07→17:00)
[2020-02-22 09:14] LABS: BASOPHILS # (AUTO) 0.1 K/uL (0.00-0.22); BASOPHILS % (AUTO) 0.5 % (0.0-2.0); EOSINOPHILS % (AUTO) 0.1 % (0.0-4.0); HEMATOCRIT 29.7 % (36-52); HEMOGLOBIN 10.1 g/dL (12.0-18.0); LYMPHOCYTES # (AUTO) 0.9 K/uL (2.0-11.5); LYMPHOCYTES % (AUTO) 7.9 % (20.5-51.1); MEAN CORPUSCULAR HEMOGLOBIN 30 pg (27-31); MEAN CORPUSCULAR HGB CONC 34 g/dL (33-37); MEAN CORPUSCULAR VOLUME 87.4 fL (80-94); MONOCYTES # (AUTO) 0.3 K/uL (0.8-1.0); MONOCYTES % (AUTO) 2.5 % (1.7-9.3); NEUTROPHILS # (AUTO) 9.8 K/uL (1.8-7.7); PLATELET COUNT (AUTO) 331 K/uL (140-450); RED CELL DISTRIBUTION WIDTH 17.6 % (11.6-13.7)
[2020-02-22 09:19] LABS: ANION GAP 11.7 (8-16); CARBON DIOXIDE 31.2 mmol/L (21-32); CREATININE 0.6 mg/dL (0.6-1.3); POTASSIUM 3.9 mmol/L (3.5-5.1)
[2020-02-22 12:00] VITALS: BP 154/91
--- NOTE | 2020-02-22 12:10 | NUR ---
BLOOD SUGAR 119. NO COVERAGE GIVEN
[2020-02-22] MEDS: PROMETH/CODEINE 6.25-10MG/5ML 5 ML UDC PO PRN ×2 (12:30→20:43)
--- NOTE | 2020-02-22 13:30 | NUR ---
PT AWAKE IN BED. NO APPARENT DISTRESS. NO C/O PAIN, NO SOB
--- NOTE | 2020-02-22 15:45 | NUR ---
PT AWAKE IN BED. ON OXIMIZER 12L, O2SAT 96%, RESPIRATIONS ARE EVEN AND UNLABORED, NO C/O PAIN
[2020-02-22 16:00] VITALS: BP 144/92
--- NOTE | 2020-02-22 17:15 | NUR ---
BLOOD SUGAR 111. NO COVERAGE GIVEN
--- NOTE | 2020-02-22 18:28 | NUR ---
WILL ENDORSE TO WET AND DRY SUGAR BIN OPERATOR FOR CONTINUITY OF CARE. IN STABLE CONDITION
[2020-02-22 20:00] VITALS: BP 126/91
--- NOTE | 2020-02-22 20:00 | NUR ---
RECEIVED REPORT FROM THE DAY RN REGARDING THE PT FOR CONTINUITY OF CARE. PT A/A/OX3, SITTING UP IN BED WATCHING TV DURING ROUNDS. PT REQUESTED TO HAVE A BREATHING TREATMENT FOR SOB. RESPIRATORY THERAPIST AT THE NURSE STATION MADE AWARE. OTHERWISE NO C/O PAIN OR CHEST PAIN AT THIS TIME. IVF INFUSING ORDERED. VSS, AFEBRILE, SATING 95% ON 11L/ OXIMIZER. SR WITH PEAKED P WAVE ON MANAGER PAPER, HR- 99.INSTRUCTED TO CALL FOR ASSISTANCE AT ALL TIMES WHEN GETTING OOB. PT VERBALIZED UNDERSTANDING WITH THE POC. CALL LIGHT WITHIN REACH. WILL CONTINUE POC AND MONITORING.
--- NOTE | 2020-02-22 22:00 | NUR ---
ADMINISTERED ALL THE SCHEDULED MEDICATIONS EARLIER.BLOOD SUGAR WAS 100. NO COVERAGE NEEDED AND GIVEN. SAFETY MEASURES IN PLACED.
[2020-02-23] VITALS: BP 120/80
--- NOTE | 2020-02-23 | NUR ---
CHECKED THE PT VITAL SIGNS. VSS, AFEBRILE, SATING 98% ON 11L OXIMIZER. SR ON TECHNICAL PROFESSIONAL, HR-88. CALL LIGHT WITHIN REACH.
[2020-02-23] MEDS: PIPERACILLIN/TAZOBACTAM 3.375 GM in DEXTROSE 5% 50 ML IV SCH ×5 (00:41→23:34)
--- NOTE | 2020-02-23 02:00 | NUR ---
Pt asleep. No s/sx of distress noted. Visible chest rise and fall noted. Repositioned for comfort. HOB bed elevated.
[2020-02-23 04:00] VITALS: BP 129/92
--- NOTE | 2020-02-23 04:00 | NUR ---
VSS, AFEBRILE, SATING 100% ON 11L OXIMIZER. SINUS RHYTHM ON WALL COVERING CONTRACTOR, HR-81. NO COMPLAIN AT THIS TIME.
[2020-02-23] MEDS: PROMETH/CODEINE 6.25-10MG/5ML 5 ML UDC PO PRN ×2 (04:50→23:30)
[2020-02-23] MEDS: BLOOD GLUCOSE MONITORING 1 DEV DEV FS SCH ×4 (05:58→20:54)
--- NOTE | 2020-02-23 06:27 | NUR ---
PATIENT STABLE. NO ACUTE EVENTS THROUGHOUT THE NIGHT. PT IS NOT IN DISTRESS. NO COMPLAIN AT THIS TIME. ALL NEEDS ATTENDED. CALL LIGHT WITHIN REACH. WILL ENDORSE THE PT TO THE ONCOMING RN FOR CONTINUITY OF CARE.
--- NOTE | 2020-02-23 07:15 | NUR ---
RECEIVED REPORT FROM SENIOR FIELD SERVICE ENGINEER NURSE. PT IN BED. AOX4, NO C/O PAIN, NO SOB, RESPIRATIONS ARE EVEN AND UNLABORED. ON O2 11L VIA OXIMIZER. SKIN IS INTACT. PT IS AMBULATORY WITH ASSIST. COMMODE AND URINAL AT BEDSIDE. WITH IV ON LH 22G NS AT 70ML/HR. SAFETY PRECAUTIONS IN PLACE. CALL LIGHT WITHIN REACH. WILL CONTINUE TO MONITOR
[2020-02-23] MEDS: ALBUTEROL SULFATE/IPRATROPIU 3 ML SOL IH SCH ×3 (07:44→19:41)
[2020-02-23 07:45] LABS: BASOPHILS # (AUTO) 0.1 K/uL (0.00-0.22); BASOPHILS % (AUTO) 0.5 % (0.0-2.0); EOSINOPHILS % (AUTO) 0.3 % (0.0-4.0); HEMATOCRIT 28.4 % (36-52); HEMOGLOBIN 9.6 g/dL (12.0-18.0); LYMPHOCYTES # (AUTO) 1.2 K/uL (2.0-11.5); LYMPHOCYTES % (AUTO) 10.9 % (20.5-51.1); MEAN CORPUSCULAR HEMOGLOBIN 29 pg (27-31); MEAN CORPUSCULAR HGB CONC 34 g/dL (33-37); MEAN CORPUSCULAR VOLUME 86.7 fL (80-94); MONOCYTES # (AUTO) 0.7 K/uL (0.8-1.0); MONOCYTES % (AUTO) 6.7 % (1.7-9.3); NEUTROPHILS % (AUTO) 81.6 % (42.2-75.2); PLATELET COUNT (AUTO) 290 K/uL (140-450); RED BLOOD CELL COUNT(AUTO) 3.28 MIL/uL (4.20-6.10)
[2020-02-23 08:00] VITALS: BP 122/80
--- NOTE | 2020-02-23 08:40 | NUR ---
DUE MORNING MEDS GIVEN. PO MEDS TOLERATED WELL
[2020-02-23] MEDS: MULTIVITAMIN 1 TAB PO SCH (08:57)
[2020-02-23] MEDS: metFORMIN 850 MG TAB PO SCH ×2 (08:57→17:37)
[2020-02-23] MEDS: predniSONE 20 MG TAB PO SCH (08:57)
[2020-02-23] MEDS: BENZONATATE 100 MG CAPLF PO SCH ×3 (08:57→17:37)
[2020-02-23 09:32] LABS: ANION GAP 11.4 (8-16); CARBON DIOXIDE 30.2 mmol/L (21-32); CREATININE 0.7 mg/dL (0.6-1.3); POTASSIUM 3.6 mmol/L (3.5-5.1)
--- NOTE | 2020-02-23 11:09 | NUR ---
PT AWAKE IN BED. NO C/O PAIN, NO APPARENT DISTRESS
[2020-02-23 12:00] VITALS: BP 139/83
--- NOTE | 2020-02-23 12:15 | NUR ---
WITH EPISODE OF DESATURATION 75% AFTER USING COMMODE. ASSISTED PT BACK TO BED. INCREASED O2 TO 10L OXIMIZER. AFTER RESTING, O2SAT BACK TO 94%. TITRATED BACK TO 7L. O2SAT STABLE AT 91%
[2020-02-23] MEDS ORDERED: METOPROLOL 5 MG/5 ML VIAL IV PRN (12:25)
[2020-02-23] MEDS: NACL 0.9% 1,000 ML IV SCH (12:59)
--- NOTE | 2020-02-23 14:15 | NUR ---
PATIENT OM COMMODE FOR DEIFICATION ON SUPPLEMTAL OXYGEN NO DISTRESS NOTED RECREATION WORKER TO ATTEMPT HHN THERAPY AT A LATER TIME
--- NOTE | 2020-02-23 14:30 | NUR ---
PT IN BED. NO C/O PAIN, RESPIRATIONS ARE EVEN AND UNLABORED. O2SAT 93% ON 7L
[2020-02-23 16:00] VITALS: BP 122/62
--- NOTE | 2020-02-23 16:16 | NUR ---
P.T. NOTES D/C FROM P.T. AFTER TX; AMBULATORY WITHOUT ASST DEVICE; O2 SAT ROOM AIR=80s, OXYMIZER 6L=94%; ENDORSED TO NURSING.
--- NOTE | 2020-02-23 17:30 | NUR ---
PT IN BED, NO S/S OF DISTRESS, NO C/O PAIN
--- NOTE | 2020-02-23 19:14 | NUR ---
ENDORSED TO NEXT SHIFT FOR CONTINUITY OF CARE. PT STABLE
--- NOTE | 2020-02-23 19:15 | NUR ---
RECEIVED BEDSIDE ENDORSEMENT FROM YULI BLACK. PATIENT IS AOX4, RESPIRATION EVEN AND UNLABORED, ON 7 LITERS OXYMIZER, NO SOB NOTED, NO C/O PAIN. WITH INFUSING IVF AT 70CC/HR AT LH 22 G, INTACT. PLAN OF CARE DISCUSSED. LOW BED IN PLACE. CALL LIGHT WITHIN REACH.
--- NOTE | 2020-02-23 20:54 | NUR ---
DUE MEDS GIVEN ORDERED. TOLERATED WELL.
--- NOTE | 2020-02-23 22:50 | NUR ---
SPOKE TO MOLD CAPPER DR. ANDERSON RE: PATIENT C/O COUGH. HE ORDERED PROMETHAZINE/CODEINE 5ML PO Q4 PRN COUGH. NOTED AND CARRIED OUT.
--- NOTE | 2020-02-23 23:00 | NUR ---
RECEIVED REPORT FROM RN PT IN STABLE CONDITION PT ON 9L OXIMIZER 94 % WILL CONTINUE POC
--- NOTE | 2020-02-23 23:00 | NUR ---
PATIENT IN NO ACUTE DISTRESS, NO SOB. DENIES PAIN. ENDORSED PATIENT AT BEDSIDE TO INDIARN FOR CONTINUITY OF CARE.
--- NOTE | 2020-02-23 23:35 | NUR ---
PT C/O COUGHING PT WAS GIVEN PHENERGAN/CODEINE COUGH SYRUP PRN FOR COUGH AT THIS TIME. REMAINS ON 11L VIA OXIMIZER.
[2020-02-24 00:30] VITALS: BP 132/81
--- NOTE | 2020-02-24 00:30 | NUR ---
PT. RESTING IN BED IN NO DISTRESS NO COUGHING PRN HELPFUL
--- NOTE | 2020-02-24 02:30 | NUR ---
MADE ROUNDS. PT AWAKE. O2 SAT AT THIS TIME 98% . NO DISTRESS NOTED.
[2020-02-24 04:00] VITALS: BP 124/90
--- NOTE | 2020-02-24 04:30 | NUR ---
PT RESTING IN BED WITH EYES CLOSED. RESPIRATION EVEN AND UNLABORED NO COUGHING. REMAINS ON 13L OXIMIZER 94-96%. IN NO DISTRESS. V/S: 97.2, 98, 20, 124/90, 94 % ON 13L OXIMIZER. 0/10.
[2020-02-24] MEDS: PIPERACILLIN/TAZOBACTAM 3.375 GM in DEXTROSE 5% 50 ML IV SCH ×3 (05:15→17:23)
[2020-02-24] MEDS: NACL 0.9% 1,000 ML IV SCH ×2 (05:24→17:16)
[2020-02-24] MEDS: BLOOD GLUCOSE MONITORING 1 DEV DEV FS SCH ×5 (06:15→23:19)
--- NOTE | 2020-02-24 06:32 | NUR ---
BS 89 PT DENIES ANY DISCOMFORT. IN NO DISTRESS. NO COVERAGE NEEDED. ALL NEEDS ARE MET AT THIS TIME.
--- NOTE | 2020-02-24 07:20 | NUR ---
RECEIVED PATIENT FROM NIGHT NURSE. PATIENT IS AWAKE AND ALERT. SITTING UP IN BED. RESP EVEN AND UNLABORED ON 13L OXIMIZIER. DENIES OF PAIN AT THIS TIME. NOTED COUGHING. O2SAT 93%. PATIENT ENCOURAGED TO TAKE SLOW BREATHES. PLAN OF CARE DISCUSSED. PATIENT VERBALIZED UNDERSTANDING. CALL LIGHT WITHIN REACH. BED IN LOW POSITION. WILL CONTINUE TO MONITOR.
[2020-02-24 08:00] VITALS: BP 137/98
[2020-02-24] MEDS: ALBUTEROL SULFATE/IPRATROPIU 3 ML SOL IH SCH ×3 (08:00→19:30)
[2020-02-24 09:00] LABS: BASOPHILS # (AUTO) 0.1 K/uL (0.00-0.22); BASOPHILS % (AUTO) 0.8 % (0.0-2.0); EOSINOPHILS % (AUTO) 0.3 % (0.0-4.0); HEMOGLOBIN 9.5 g/dL (12.0-18.0); LYMPHOCYTES # (AUTO) 1.1 K/uL (2.0-11.5); LYMPHOCYTES % (AUTO) 9.4 % (20.5-51.1); MEAN CORPUSCULAR HEMOGLOBIN 29 pg (27-31); MEAN CORPUSCULAR HGB CONC 34 g/dL (33-37); MONOCYTES # (AUTO) 0.7 K/uL (0.8-1.0); NEUTROPHILS # (AUTO) 9.8 K/uL (1.8-7.7); NEUTROPHILS % (AUTO) 83.5 % (42.2-75.2); PLATELET COUNT (AUTO) 295 K/uL (140-450); RED BLOOD CELL COUNT(AUTO) 3.26 MIL/uL (4.20-6.10); RED CELL DISTRIBUTION WIDTH 17.4 % (11.6-13.7); WHITE BLOOD COUNT (AUTO) 11.7 K/uL (4.8-10.8)
[2020-02-24] MEDS: metFORMIN 850 MG TAB PO SCH ×2 (09:53→17:16)
[2020-02-24] MEDS: predniSONE 20 MG TAB PO SCH (09:53)
[2020-02-24 09:55] LABS: ANION GAP 12.3 (8-16); CREATININE 0.6 mg/dL (0.6-1.3); POTASSIUM 3.3 mmol/L (3.5-5.1)
[2020-02-24] MEDS: BENZONATATE 100 MG CAPLF PO SCH ×3 (09:55→17:16)
[2020-02-24] MEDS: MULTIVITAMIN 1 TAB PO SCH (09:55)
--- NOTE | 2020-02-24 10:05 | NUR ---
MORNING ROUTINE MEDICATIONS GIVEN. PATIENT TOLERATED WELL. LH 22 WITH NS 70ML/HR. NO NOTED DISTRESS AT THIS TIME. RESP EVEN AND UNLABORED ON 13L OXIMIZER. CALL LIGHT WITHIN REACH. WILL CONTINUE TO MONITOR.
--- NOTE | 2020-02-24 11:05 | NUR ---
pt was changed from 12l oxymizer to 9l oxymizer and jonathan carreon notified
--- NOTE | 2020-02-24 11:30 | NUR ---
PATIENT WANTING TO GET OUT OF BED TO USE THE BEDSIDE COMMODE. PATIENT IS SITTING BY BEDSIDE AND O2SAT 85%. OXYGEN IS INCREASED TO 10L. O2 SAT IS AT 90%. PATIENT IS ENCOURAGED TO USE CALL LIGHT FOR NURSE TO ASSIST. PATIENT VERBALIZED UNDERSTANDING.
[2020-02-24 12:00] VITALS: BP 140/102
--- NOTE | 2020-02-24 12:28 | NUR ---
PATIENT O2SAT IS AT 85% AFTER USING THE BEDSIDE COMMODE. PATIENT O2SAT STAYS AT 85% WHILE IN BED. OXYGEN INCREASED TO 13L OXIMIZIER, O2SAT IS AT 93%. PATIENT IS TOLERATING WELL AT THIS TIME.
--- NOTE | 2020-02-24 15:29 | NUR ---
02/24/20 RD FOLLOW UP COMPLETED PLEASE REFER TO NUTRITION ASSESSMENT UNDER CARE ACTIVITY FOR ESTIMATED NUTRITIONAL NEEDS. 1. RECOMMEND MECHANICAL SOFT CCHO 75GM DIET TOLERATED 2. CONTINUE GLUCERNA QID 3. ENCOURAGED PO INTAKE 4. RD TO FOLLOW-UP 3-5 DAYS, MODERATE RISK JANELLE CANO, RD
[2020-02-24 16:00] VITALS: BP 127/94
[2020-02-24] MEDS: INSULIN LISPRO SLIDING SCALE 100 UNITS/ML VIAL SUBQ PRN (16:43)
--- NOTE | 2020-02-24 16:45 | NUR ---
PATIENT IS RESTING COMFORTABLY IN BED. RESP EVEN AND UNLABORED ON 13L OXIMIZER O2SAT 96%. OXYGEN DECREASED TO 11L. PATIENT VERBALIZED UNDERSTANDING AND TOLERATING WELL. O2 SAT AT 95%. RT WHELAN MADE AWARE
--- NOTE | 2020-02-24 17:15 | NUR ---
PATIENT STARTS TO COUGH D/T DISINFECTING SMELL FROM THE HALLWAY. O2SAT 75%. OXYGEN INCREASED TO 15L. RT WAS CALLED AND BREATHING TREATMENT WAS GIVEN. PATIENT TOLERATED WELL. O2SAT 92%. ENDORSED TO NIGHT NURSE. PATIENT IN STABLE CONDITION.
--- NOTE | 2020-02-24 19:35 | NUR ---
RECEIVED PT FROM MAHI ROLDAN PT IS AAOX4 ON OXIMIZER RESP THERAPY IS HER AND INCREASED TO 15 LTS OXIMIZER 02 SAT 98% , ON TELE ST INITIAL ASSESSMENT DONE
--- NOTE | 2020-02-24 19:38 | NUR ---
RECEIVED REPORT FROM AM SHIFT. PT SEEN AND ASSESSED. PT IS ON 15L OXYMIZER WITH SPO2 OF 82%. AUSCULTATION REVEALS CLEAR BREATH SOUNDS. PT C/O SOB AT THIS TIME. TX GIVEN ORDERED AND PT TOLERATED WELL WITH NO ADVERSE REACTIONS. SPO2 IMPROVED TO 98%. O2 TITRATED TO 13l WITH SPO2 OF 92%. WILL CONTINUE TO MONITOR PT.
[2020-02-24 20:00] VITALS: BP 133/93
--- NOTE | 2020-02-24 20:45 | NUR ---
PT IS ENDORSED TO CHRISTY RN FOR CONTINUE OF CARE
--- NOTE | 2020-02-24 21:00 | NUR ---
RECEIVED REPORT OF PT IN STABLE CONDITION.RESP.UNLABORED W/O2 VIA OXIMIZER.IVF IS STOPPED NOW.CALL LIGHT IN REACH.HR IS ST. NO DISTRESS NOTED NOW.WILL CONTINUE MONITORING.
[2020-02-24] MEDS: PROMETH/CODEINE 6.25-10MG/5ML 5 ML UDC PO PRN (23:19)
[2020-02-25] VITALS: BP 125/89
[2020-02-25] MEDS: ALBUTEROL SULFATE/IPRATROPIU 3 ML SOL IH PRN (00:10)
--- NOTE | 2020-02-25 00:15 | NUR ---
HAD C/O COUGH EARLIER.COUGH MED GIVEN STILL HAS A LITTLE BIT COUGH.WHEN HAS COUGH ,O2 SAT DROPPED.HR IS ST.WILL MONITOR CLOSELY.
[2020-02-25] MEDS: PIPERACILLIN/TAZOBACTAM 3.375 GM in DEXTROSE 5% 50 ML IV SCH ×2 (00:35→06:00)
[2020-02-25] MEDS: LORazepam 2 MG/ML VIAL IM/IVP PRN (02:15)
--- NOTE | 2020-02-25 03:20 | NUR ---
HAD SEVERE COUGH AND LOW O2 SAT.AND AGITATION.TOOK ORDER FOR ATIVAN AND ONE DOSE GIVEN.STILL IS THE SAME. PUT NRB MASK INSTEAD OF OXIMIZER.AND GAVE ANOTHER DOSE OF COUGH MED QALSO CX STAT ORDERED.
[2020-02-25] MEDS: PROMETH/CODEINE 6.25-10MG/5ML 5 ML UDC PO PRN ×2 (03:25→23:02)
--- NOTE | 2020-02-25 03:43 | NUR ---
PT IS SLEEPING NOW W/O S/S OF RESP.DISTRESS.HR STILL IS ST BUT O2 SAT IS 100% W/NRB KASK.
[2020-02-25 04:00] VITALS: BP 130/80
--- NOTE | 2020-02-25 05:03 | NUR ---
HR IS 129 AND O2 SAT IS 98% NOW.RESP.UNLABORED W/NRB MASK.WILL MONITOR CLOSELY.
[2020-02-25] MEDS: BLOOD GLUCOSE MONITORING 1 DEV DEV FS SCH ×4 (06:44→19:41)
--- NOTE | 2020-02-25 06:44 | NUR ---
HR =117 AND O2 SAT=92 NOW.RESP.UNLABORED W/O2 VIA NRB MASK.
[2020-02-25] MEDS: ALBUTEROL SULFATE/IPRATROPIU 3 ML SOL IH SCH ×3 (07:00→19:22)
--- NOTE | 2020-02-25 07:15 | NUR ---
RECEIVED REPORT FROM SALES AND MARKETING ASSOCIATE NURSE TOBI FOR CONTINUITY OF CARE. PATIENT IN STABLE CONDITION. RESPIRATIONS EVEN AND UNLABORED, O2 VIA NONREBREATHER. IV INTACT AND PATENT. SAFETY MEASURES IN PLACE. BED IN LOW POSITION. BED ALARM ON. CALL LIGHT WITHIN REACH. WILL CONTINUE TO MONITOR.
[2020-02-25] MEDS: NACL 0.9% 1,000 ML IV SCH ×2 (07:53→22:11)
[2020-02-25 08:00] VITALS: BP 143/98
[2020-02-25 08:10] LABS: BASOPHILS # (AUTO) 0.1 K/uL (0.00-0.22); BASOPHILS % (AUTO) 0.6 % (0.0-2.0); EOSINOPHILS % (AUTO) 0.1 % (0.0-4.0); HEMATOCRIT 24.7 % (36-52); HEMOGLOBIN 8.4 g/dL (12.0-18.0); LYMPHOCYTES # (AUTO) 0.5 K/uL (2.0-11.5); MEAN CORPUSCULAR HEMOGLOBIN 30 pg (27-31); MEAN CORPUSCULAR HGB CONC 34 g/dL (33-37); MEAN CORPUSCULAR VOLUME 87.2 fL (80-94); MONOCYTES # (AUTO) 0.5 K/uL (0.8-1.0); MONOCYTES % (AUTO) 4.3 % (1.7-9.3); NEUTROPHILS # (AUTO) 11.1 K/uL (1.8-7.7); PLATELET COUNT (AUTO) 256 K/uL (140-450); RED BLOOD CELL COUNT(AUTO) 2.83 MIL/uL (4.20-6.10); RED CELL DISTRIBUTION WIDTH 17.6 % (11.6-13.7); WHITE BLOOD COUNT (AUTO) 12.2 K/uL (4.8-10.8)
[2020-02-25] MEDS: metFORMIN 850 MG TAB PO SCH (08:22)
[2020-02-25] MEDS: MULTIVITAMIN 1 TAB PO SCH (08:22)
[2020-02-25] MEDS: BENZONATATE 100 MG CAPLF PO SCH ×3 (08:22→17:24)
--- NOTE | 2020-02-25 08:22 | NUR ---
GAVE ORDERED DUE MEDICATIONS AT THIS TIME. PATIENT TOLERATED WELL. BED IN LOW POSITION. BED ALARM ON. CALL LIGHT WITHIN REACH. WILL CONTINUE TO MONITOR.
[2020-02-25] MEDS: predniSONE 20 MG TAB PO SCH (08:23)
[2020-02-25 08:35] LABS: ANION GAP 10.9 (8-16); CARBON DIOXIDE 31.2 mmol/L (21-32); CREATININE 0.7 mg/dL (0.6-1.3); POTASSIUM 3.1 mmol/L (3.5-5.1)
[2020-02-25] MEDS: POTASSIUM CHLORIDE 10 MEQ TABER PO PRN (09:35)
--- NOTE | 2020-02-25 09:35 | NUR ---
GAVE PRN MEDICATION AT THIS TIME, POTASSIUM 3.1. PATIENT TOLERATED WELL. BED IN LOW POSITION. BED ALARM ON. CALL LIGHT WITHIN REACH. WILL CONTINUE TO MONITOR.
--- NOTE | 2020-02-25 11:45 | NUR ---
IV PLACED LEFT FOREARM 20G FOR CT CHEST WITH CONTRAST. CONSENT SIGNED.
[2020-02-25 12:00] VITALS: BP 134/85
--- NOTE | 2020-02-25 13:56 | NUR ---
RECEIVED REPORT FROM JACQUELINE FOR CONTINUITY OF CARE. WAITING FOR DR. ANDERSON TO SIGN THE CONSENT FOR CT CHEST WITH CONTRAST.
--- NOTE | 2020-02-25 13:56 | NUR ---
GAVE REPORT TO DAY SHIFT NURSE FOR CONTINUITY OF CARE. PATIENT IN STABLE CONDITION.
--- NOTE | 2020-02-25 15:00 | NUR ---
PATIENT OFF FLOOR WENT TO CT.
--- NOTE | 2020-02-25 16:30 | NUR ---
PATIENT BACK FROM CT. BS CHECKED 131 NO COVERAGE AT THIS TIME.
[2020-02-25 16:52] VITALS: BP 101/74
[2020-02-25] MEDS: INSULIN LISPRO SLIDING SCALE 100 UNITS/ML VIAL SUBQ PRN (17:07)
--- NOTE | 2020-02-25 19:15 | NUR ---
RECEIVED BEDSIDE REPORT FROM DAY SHIFT NURSE. PT IS A&O X 4. ON 9L NONREBREATHER WITH O2 SAT AT 96%. LUNG SOUNDS ARE COARSE BILATERALLY LOBES. PT IS ON TELE MONITORING WITH ST AT 122. SKIN IS INTACT, WARM, AND DRY. LEFT FOREARM [address] AND PATENT[address] LEFT WRIST [address] AND PATENT. COMMODE AT BEDSIDE, PT IS AMBULATORY WITH ASSIST. FALL PRECAUTIONS IN PLACE. PT IS NEGATIVE COVID 19 TEST. BED IN LOWEST POSITION AND CALL LIGHT WITHIN REACH. PLAN OF CARE DISCUSSED.
--- NOTE | 2020-02-25 19:25 | NUR ---
REPORT GIVEN TO MALINDA FOR CONTINUITY OF CARE. PATIENT IN STABLE CONDITION.
--- NOTE | 2020-02-25 19:26 | NUR ---
RECEIVED REPORT FROM AM SHIFT. PT SEEN AND ASSESSED. PT IS ON NRB MASK @15L WITH SPO2 OF 92%. AUSCULTATION REVEALS COARSE BILATERAL BREATH SOUNDS.PT IN NO APPARENT RESPIRATORY DISTRESS AT THIS TIME. TX GIVEN ORDERED AND PT TOLERATED WELL WITH NO ADVERSE REACTIONS. WILL CONTINUE TO MONITOR PT.
[2020-02-25 20:00] VITALS: BP 103/72
--- NOTE | 2020-02-25 21:00 | NUR ---
PT'S BS CHECK WAS 121 SO NO INSULIN COVERAGE IS NEEDED. PT IS ST ON TELE MONITORING. O2 SAT IS 96% ON 15 L NONREBREATHER. PT'S RESPIRATIONS ARE EVEN AND UNLABORED. CHEST RISE AND FALL IS SYMMETRICAL. PT IS STABLE AT THIS TIME.
--- NOTE | 2020-02-25 23:00 | NUR ---
PT IS COUGHING A LOT AND O2 SAT IS DOWN TO 84% ON 15 L NONREBREATHER. PT WAS GIVEN PHENERGEN PRN FOR COUGH. WILL MONITOR PT'S O2 SAT TO ENSURE INCREASE TO STABLE LEVEL.
[2020-02-26] VITALS: BP 119/75
--- NOTE | 2020-02-26 | NUR ---
CONTACTED RT ABOUT THE O2 SAT OF 89% ON NONREBREATHER 15 L. RT SAID 89% IS STABLE AND TO CONTINUE TO MONITOR PT OXYGENATION.
[2020-02-26] MEDS: LORazepam 2 MG/ML VIAL IM/IVP PRN (00:41)
--- NOTE | 2020-02-26 00:45 | NUR ---
PT'S O2 SAT IS 89% ON NONREBREATHER AT 15 L. PT IS DISPLAYING SOME ANXIETY. ATIVAN WAS GIVEN PRN. BP WAS 119/75 AND HR IS 111. WILL CONTINUE TO MONITOR.
[2020-02-26] MEDS: PROMETH/CODEINE 6.25-10MG/5ML 5 ML UDC PO PRN ×3 (03:23→23:23)
--- NOTE | 2020-02-26 03:23 | NUR ---
PT IS AWAKE AND COUGHING A LOT. PT RECEIVED PHENERGAN PRN FOR COUGHING. BP WAS 131/75 AND O2 SAT IS 88% ON NONREBREATHER ON 15 L. BREATHING IS UNLABORED. PT IS STABLE AT THIS TIME.
[2020-02-26 04:00] VITALS: BP 131/75
[2020-02-26] MEDS: BLOOD GLUCOSE MONITORING 1 DEV DEV FS SCH ×4 (06:28→20:25)
[2020-02-26 07:07] LABS: BASOPHILS # (AUTO) 0.1 K/uL (0.00-0.22); BASOPHILS % (AUTO) 0.5 % (0.0-2.0); EOSINOPHILS % (AUTO) 0.3 % (0.0-4.0); HEMATOCRIT 27.5 % (36-52); HEMOGLOBIN 9.2 g/dL (12.0-18.0); LYMPHOCYTES # (AUTO) 1.4 K/uL (2.0-11.5); LYMPHOCYTES % (AUTO) 11.7 % (20.5-51.1); MEAN CORPUSCULAR HEMOGLOBIN 29 pg (27-31); MEAN CORPUSCULAR HGB CONC 33 g/dL (33-37); MONOCYTES # (AUTO) 0.6 K/uL (0.8-1.0); MONOCYTES % (AUTO) 4.6 % (1.7-9.3); NEUTROPHILS % (AUTO) 82.9 % (42.2-75.2); PLATELET COUNT (AUTO) 321 K/uL (140-450); RED BLOOD CELL COUNT(AUTO) 3.12 MIL/uL (4.20-6.10); RED CELL DISTRIBUTION WIDTH 18.2 % (11.6-13.7); WHITE BLOOD COUNT (AUTO) 12.1 K/uL (4.8-10.8)
--- NOTE | 2020-02-26 07:10 | NUR ---
ENDORSED PT TO DAY SHIFT NURSE FOR CONTINUITY OF CARE. PLAN OF CARE DISCUSSED. PT IS STABLE AT THIS TIME.
[2020-02-26 07:12] LABS: ANION GAP 10.6 (8-16); CARBON DIOXIDE 32.2 mmol/L (21-32); CREATININE 0.6 mg/dL (0.6-1.3); POTASSIUM 3.8 mmol/L (3.5-5.1)
[2020-02-26 08:00] VITALS: BP 123/78
[2020-02-26] MEDS: ALBUTEROL SULFATE/IPRATROPIU 3 ML SOL IH SCH ×3 (08:30→19:00)
[2020-02-26] MEDS: predniSONE 20 MG TAB PO SCH (08:42)
[2020-02-26] MEDS: MULTIVITAMIN 1 TAB PO SCH (08:42)
[2020-02-26] MEDS: BENZONATATE 100 MG CAPLF PO SCH ×3 (08:42→16:25)
--- NOTE | 2020-02-26 08:42 | NUR ---
Received report from PM RN. Pt awake and alert, skin normal color warm and dry, laying in high-platt in bed, Spo2 94% on 13L NRB, RR 28 even and mildly labored. Pt temp 99.8, cooling measures ensured. Pt reports SOB with improvement. Pt denies any pain. All needs met.
[2020-02-26 12:00] VITALS: BP 123/88
[2020-02-26] MEDS: NACL 0.9% 1,000 ML IV SCH (12:29)
--- NOTE | 2020-02-26 12:57 | NUR ---
Pt awake and alert, skin normal color warm and dry, laying in high-platt in bed, Spo2 97% on 13L NRB, RR 24 even and mildly labored. Pt reports SOB, with improvement. Denies any pain. Temp improved, afebrile at this time.
[2020-02-26 16:00] VITALS: BP 120/74
--- NOTE | 2020-02-26 16:00 | NUR ---
Pt awake and alert, skin normal color warm and dry, laying in high-platt in bed, Spo2 94% on 15L NRB, RR 24 even and mildly labored. Pt reports SOB, with improvement. Denies any pain. All needs met
[2020-02-26] MEDS: INSULIN LISPRO SLIDING SCALE 100 UNITS/ML VIAL SUBQ PRN (17:59)
--- NOTE | 2020-02-26 19:05 | NUR ---
RECEIVED BEDSIDE REPORT FROM DAY SHIFT NURSE. PLAN OF CARE WAS DISCUSSED. PT IS AWAKE AND ALERT. A&O X 4. PT IS ON 15 L NONREBREATHER WITH O2 SAT AT 96%. RESPIRATIONS ARE UNLABORED AND EVEN. LUNG SOUNDS ARE DIMINISHED WITH CRACKLES. NO COUGH CURRENTLY PRESENT. SKIN IS WARM, DRY, AND INTACT. IV IS IN THE LEFT WRIST 22 GAUGE AND LEFT FOREARM 20 SORIN RUNNING NS AT 30 ML PER HOUR. BED IS IN LOWEST POSITION AND CALL LIGHT IS WITHIN REACH. FALL PRECAUTIONS IN PLACE. COMMODE AT BEDSIDE FOR ASSISTANCE. WILL CONTINUE TO MONITOR.
--- NOTE | 2020-02-26 19:30 | NUR ---
Transfer of care to Lois ROLDAN
[2020-02-26 20:00] VITALS: BP 111/74
--- NOTE | 2020-02-26 20:59 | NUR ---
PT APPEARS ANXIOUS, COMPLAINING OF SOB. PT IS ON 15 L NONREBREATHER. PT IS BREATHING FAST AND SHALLOW. O2 SAT IS AT 85%. ENCOURAGED PT TO TAKE SLOW, DEEP BREATHS. O2 SAT WENT UP TO 94%. PT REFUSED TO HAVING ATIVAN FOR ANXIETY AT THIS TIME. WILL CONTINUE TO MONITOR. NO COUGH PRESENT CURRENTLY.
--- NOTE | 2020-02-26 22:00 | NUR ---
PT IS RESTING. APPEARS TO BE CALM AND NO LONGER ANXIOUS. RESPIRATIONS ARE UNLABORED. ON 15 L NONREBREATHER WITH O2 SAT AT 92%. PT IS STABLE AT THIS TIME.
--- NOTE | 2020-02-26 23:23 | NUR ---
PT IS COUGHING INTERMITTENTLY. PT WAS GIVEN PHENERGAN PRN. WILL CONTINUE TO MONITOR COUGH.
[2020-02-27] VITALS: BP 129/88
[2020-02-27] MEDS: LORazepam 2 MG/ML VIAL IM/IVP PRN (00:40)
--- NOTE | 2020-02-27 01:00 | NUR ---
PAGED RT TO COME SEE PT BECAUSE PT'S O2 SAT WAS 75%. PT IS COUGHING INTERMITTENTLY. WILL CONTINUE TO MONITOR AND WAIT FOR RT.
[2020-02-27] MEDS: ALBUTEROL SULFATE/IPRATROPIU 3 ML SOL IH PRN ×2 (01:12→03:37)
--- NOTE | 2020-02-27 01:25 | NUR ---
RT IS AT BEDSIDE WITH PT. PT'S O2 SAT IS 65% ON 15 L NONREBREATHER. PT WAS GIVEN ALBUTEROL TX PER RT. SATURATION STILL AT 70%. PT REFUSED BIPAP THREE TIMES. WILL CONTINUE TO MONITOR. SUPPORTIVE CARE TO ENCOURAGE DEEP BREATHING.
--- NOTE | 2020-02-27 01:41 | NUR ---
CALLED TO BED SIDE DUE TO PT DESAT SPO2 65%. HHN TX GIVEN WITH SPO2 IMPROVE TO 73%. ABG COLLECTED AND RESULTS GIVEN TO (ER). PT REFUSED TO USE BiPAP. PT SPO2 IMPROVED TO 88%. RN AT BEDSIDE. WILL CONTINUE TO MONITOR PT.
--- NOTE | 2020-02-27 01:45 | NUR ---
PT'S O2 SAT IS INCREASING TO 85%. PT'S BREATHING IS STILL LABORED AND SHALLOW. HR IS 145. RT STILL AT BEDSIDE, WE WILL CONTINUE TO MONITOR.
--- NOTE | 2020-02-27 02:00 | NUR ---
PT IS ASLEEP. O2 SAT IS 88%. PT'S BREATHING IS STILL LABORED AND SHALLOW. CHEST RISE AND FALL IS SYMMETRICAL. PT IS COUGHING INTERMITTENTLY, NON PRODUCTIVE. WILL CONTINUE TO MONITOR.
--- NOTE | 2020-02-27 02:33 | NUR ---
PT WAS GIVEN METOPROLOL PRN FOR HR ABOVE 120. PT'S HR IS 139 AND BP IS 120/81. AFTER GIVING THE MEDICATION THE PT'S HR WENT DOWN TO 115. WILL REASSESS BP AND HR.
--- NOTE | 2020-02-27 03:06 | NUR ---
SPOKE TO DOCTOR RESIDENT CARE COORDINATOR FOR DR. MEZA ABOUT PT CONDITION. INFORMED HIM ABOUT PT DESATURATING TO 60% AND REFUSAL FOR BIPAP. INFORMED HIM ABOUT PT'S ABG LABS. INFORMED HIM ABOUT PT'S UNSTABLE O2 SATURATION AND LABORED BREATHING. NO NEW ORDERS. IS AWARE OF PT CONDITION.
--- NOTE | 2020-02-27 03:35 | NUR ---
PT'S RESPIRATIONS ARE SHALLOW AND LABORED. O2 SAT IS 68%. RT WAS CALLED TO THE BEDSIDE. RT IS GIVING PT ALBUTEROL TREATMENT. PT O2 SAT IS TRENDING UP TO 84%. WILL CONTINUE TO MONITOR.
[2020-02-27 04:00] VITALS: BP 134/86
--- NOTE | 2020-02-27 04:00 | NUR ---
PT IS ASLEEP. BREATHING IS LABORED AND SHALLOW. CHEST RISE AND FALL IS SYMMETRICAL PT IS NOT COUGHING CURRENTLY. O2 SAT IS 90%. WILL CONTINUE TO MONITOR.
--- NOTE | 2020-02-27 05:14 | NUR ---
PT'S O2 SAT IS 96% ON 15L NONREBREATHER. PT IS CALM, NOT ANXIOUS, AND SLEEPING. PT'S BREATHING IS LABORED. PT IS STABLE AT THIS TIME.
[2020-02-27] MEDS: BLOOD GLUCOSE MONITORING 1 DEV DEV FS SCH (06:38)
--- NOTE | 2020-02-27 07:00 | NUR ---
ENDORSED PT TO DAY SHIFT NURSE FOR CONTINUITY OF CARE. PT'S RESPIRATIONS ARE LABORED AND SHALLOW. PT IS RESTING IN SEMI FOWLERS POSITION. O2 SAT IS 90% ON NONREBREATHER AND HR IS 132. INFORMED NURSE THAT PT REFUSED BIPAP MULTIPLE TIMES THROUGH THE SHIFT. PT IS AWAKE AT THIS TIME.
--- NOTE | 2020-02-27 07:05 | NUR ---
RECEIVED BEDSIDE REPORT FROM NIGHTSHIFT NURSE. PT RESTING IN BED. ABLE TO MAKE NEEDS KNOWN. RESPIRATIONS EVEN AND UNLABORED WITH NO SOB OR RESPIRATORY DISTRESS. SKIN WARM AND DRY TO TOUCH. IV SITE IN L WRIST 22G AND LFA 24G IS CLEAN, DRY, AND INTACT. SAFETY MEASURES IN PLACE. WILL CONTINUE TO MONITOR
--- NOTE | 2020-02-27 07:25 | NUR ---
SPOKE TO BROTHDENIS STANLEY AND UPDATE HIM ON THE PLAN OF CARE. WILL ENDORSE TO DAY SHIFT NURSE.
--- NOTE | 2020-02-27 07:40 | NUR ---
PT O2 AT 85-87% ON 15L NONREBREATHER MASK. CALLED RT FOR BREATHING TREATMENT. SAFETY MEASURES IN PLACE. WILL CONTINUE TO MONITOR
[2020-02-27] MEDS: ALBUTEROL SULFATE/IPRATROPIU 3 ML SOL IH SCH (07:45)
--- NOTE | 2020-02-27 07:50 | NUR ---
R REMOVED PT FROM RX I WAS CALLED TO ER CHECKED PT AFTER RX PT STILL SOB ON 100 NRM SPO2 .88 TO .90 ALL AWARE
[2020-02-27 07:54] LABS: ANION GAP 9.9 (8-16); CARBON DIOXIDE 27.2 mmol/L (21-32); CREATININE 0.9 mg/dL (0.6-1.3); POTASSIUM 4.1 mmol/L (3.5-5.1)
[2020-02-27 08:00] VITALS: BP 118/75
--- NOTE | 2020-02-27 08:33 | NUR ---
FOUND PATIENT ASYSTOLE. CODE BLUE STARTED, CODE TEAM ARRIVED.
[2020-02-27] MEDS ORDERED: DOPPLER MC ONE (08:40)
--- NOTE | 2020-02-27 08:43 | NUR ---
PATIENT INTUBATED BY RT. CPR STILL IN PROGRESS.
--- NOTE | 2020-02-27 09:00 | NUR ---
ER DOCTOR PRONOUNCED PATIENT . SON RICH CALLED [phone]. [facility] CALLED. SPOKE WITH IZZY AND RECEIVED REFERENCE NUMBER [phone]
--- NOTE | 2020-02-27 09:45 | NUR ---
CALLED [facility] AT [phone] AND SPOKE WITH MADHURI AVILA WHO STATED "NOT REPORTABLE, BODY RELEASED." PINION STAKER AWARE
--- NOTE | 2020-02-27 11:15 | NUR ---
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
--- NOTE | 2020-02-27 11:30 | NUR ---
PT SON LIZETH WILL BE HERE AT 2PM TO CONCRETE BATCHING PLANT OPERATOR PATIENTT'S BELONGINGS. BELONGINGS PLACED WITH HUMAN INSIGHTS LEAD ADS MARKETING.
--- NOTE | 2020-02-27 15:30 | NUR ---
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 REPORT GIVEN.
== END 2020-02-27 15:30 | disposition expired | DRG 193 ==
LOC: MED 15:03 → EEVIPCON 15:03 → MMU 19:26 → UNDODEPER 20:46 → MTU 02-16 06:58
PROC: 5A12012 Performance of Cardiac Output, Single, Manual (ICD-10-PCS; principal; 2020-02-27)
PROC: 0BH17EZ Insertion of Endotracheal Airway into Trachea, Via Natural or Artificial Opening (ICD-10-PCS; 2020-02-27)
DX: J18.9 Pneumonia, unspecified organism (principal); J96.21 Acute and chronic respiratory failure with hypoxia; E84.0 Cystic fibrosis with pulmonary manifestations; R04.89 Hemorrhage from other sites in respiratory passages; E11.65 Type 2 diabetes mellitus with hyperglycemia; E83.42 Hypomagnesemia; E87.6 Hypokalemia; I10 Essential (primary) hypertension; K21.9 Gastro-esophageal reflux disease without esophagitis; R00.0 Tachycardia, unspecified; I46.9 Cardiac arrest, cause unspecified; N40.0 Benign prostatic hyperplasia without lower urinary tract symptoms; Z83.3 Family history of diabetes mellitus; Z99.81 Dependence on supplemental oxygen; Z79.84 Long term (current) use of oral hypoglycemic drugs; Z79.899 Other long term (current) drug therapy; Z82.61 Family history of arthritis; Z03.818 Encounter for observation for suspected exposure to other biological agents ruled out
CPT/HCPCS: 36415; 71045; 71270; 80048; 80053; 80305; 81003; 82150; 82948; 83036; 83605; 83615; 83690; 83735; 83880; 84100; 84436; 84443; 84484; 85025; 85379; 85610; 85651; 85730; 86140; 87040; 87081; 87086; 93005; 94640; 96365; 97110; 97112; 97116; 97161-GP; 97530; 99285; J0456; J0696; J1644; J2001; J2060; J2543; J3475; J3480; J3490; J7030; J7060; J7512; Q0092; Q9967; U0003-CS